=== PATIENT | female | born 1990 | race Caucasian/White ===

== ENCOUNTER 2021-10-21 01:22 | Inpatient (IN) | payer MEDICAID ==
[2021-10-21] VITALS (8 sets, daily range): BP systolic 151–194; BP diastolic 75–106
[~2021-10-21] VITALS: Ht 167.6 cm; Wt 122.5 kg
[2021-10-21] MEDS ORDERED: IPRATRPIUM/ALBUTEROL 0.5/2.5MG 3 ML NEBU. ONE (01:37)
[2021-10-21] MEDS ORDERED: ALBUTEROL SULFATE 2.5 MG/3 ML NEBU. ONE (01:45)
[2021-10-21 01:58] LABS: BASO # 0.1 x10^3/uL (0.0-0.2); BASO % 1 % (0-3); EOS # 0.5 x10^3/uL (0.0-0.7); EOS % 3 % (0-3); HEMATOCRIT 43.8 % (36.0-47.0); HEMOGLOBIN 14.5 g/dL (12.0-15.5); LYMPH # 2.8 x10^3/uL (1.0-4.8); LYMPH % 17 % (24-48); MEAN CORPUSCULAR HEMOGLOBIN 28 pg (25-35); MEAN CORPUSCULAR HGB CONC 33 g/dL (31-37); MEAN CORPUSCULAR VOLUME 86 fL (79-100); MONO # 0.9 x10^3/uL (0.0-1.1); MONO % 6 % (0-9); NEUT # 11.9 x10^3/uL (1.8-7.7); NEUT % 73 % (31-73); PLATELET COUNT 350 x10^3/uL (140-400); RED BLOOD COUNT 5.12 x10^6/uL (3.50-5.40); RED CELL DISTRIBUTION WIDTH 13.5 % (11.5-14.5); WHITE BLOOD COUNT 16.3 x10^3/uL (4.0-11.0)
[2021-10-21 02:10] LABS: CALCIUM 9.3 mg/dL (8.5-10.1); GFR 65.1; POTASSIUM 3.5 mmol/L (3.5-5.1)
[2021-10-21 02:14] LABS: PROTHROMBIN TIME PATIENT 14.1 SEC (11.7-14.0)
[2021-10-21 02:15] LABS: BASE EXCESS ABG 1 mmol/L (-3-3); HCO3 ABG 24 mmol/L (21-28); PCO2 ABG 33 mmHg (35-46); PO2 ABG 69 mmHg (85-108); SAT O2 ABG 94 % (92-99)
[2021-10-21 02:16] LABS: ALBUMIN 4.3 g/dL (3.4-5.0); ALBUMIN/GLOBULIN RATIO 0.9 (1.0-1.7); TOTAL BILIRUBIN 0.7 mg/dL (0.2-1.0); TOTAL PROTEIN 8.9 g/dL (6.4-8.2)
--- NOTE | 2021-10-21 02:16 | RAD ---
XR CHEST 1V 10/21/2021 1:53 AM INDICATION: Shortness of air COMPARISON: None available TECHNIQUE: Portable frontal view of the chest is provided. FINDINGS: The cardiomediastinal silhouette is within normal limits. Lungs are clear. There are no significant pleural effusions. There is no pulmonary vascular congestion. No pneumothora x. No suspicious osseous abnormality. IMPRESSION: There is no acute cardiopulmonary process. Electronically signed by: Ally Youngblood MD (10/21/2021 2:13 AM) [facility]
[2021-10-21 02:17] LABS: PREG TEST PT QUAL NEGATIVE (NEG)
[2021-10-21 02:18] LABS: D-DIMER 0.42 ug/mlFEU (0.00-0.50)
[2021-10-21 02:30] LABS: FIO2 ABG 2L NC
[2021-10-21] MEDS ORDERED: IPRATRPIUM/ALBUTEROL 0.5/2.5MG 3 ML NEBU. NEB ONE (02:30)
[2021-10-21] MEDS ORDERED: methylPREDNISolone SOD SUCC PF 125 MG/2 ML VIAL. IV ONE (02:30)
[2021-10-21] MEDS ORDERED: ALBUTEROL SULFATE 2.5 MG/3 ML NEBU. NEB ONE ×2 (02:30→04:00)
[2021-10-21] MEDS ORDERED: MAGNESIUM SULFATE 2GM 50 ML IV ONE (02:30)
[2021-10-21] MEDS ORDERED: ACETAMINOPHEN 500 MG TABLET PO ONE (05:00)
[2021-10-21] MEDS ORDERED: LEVO500T9 PO (05:34)
[2021-10-21] MEDS ORDERED: PRED20TA PO (05:34)
--- NOTE | 2021-10-21 05:52 | NUR ---
Pt arrived to unit per cart, pt ambulated to restroom and to bed with standby assist. Pt monitoring manager applied vs obtained opt blood pressure elevated. pt denied pain at this time but c/o headache will medicated pt and place call to Primary for further admission orders. Will resume care and continue to monitor pt.Call light in reach.
--- NOTE | 2021-10-21 06:21 | PHYS DOC ---
Past Medical History Past Surgical History: No Surgical History Smoking Status: Former Smoker Alcohol Use: None Adult General Chief Complaint Chief Complaint: SHORTNESS OF BREATH HPI HPI The patient is a 31-year-old female who is otherwise healthy. She smoked cigarettes for about 3 years but quit a few months ago. She has a family history of asthma but no personal history of asthma. She had COVID-19 about a month ago and recovered. Ms. Seay presents for evaluation of difficulty breathing. Over the past couple of weeks she has had a dry cough and shortness of breath. She visited her primary care doctor who noticed that she was wheezing and prescribed a nebulizer machine and oral steroids. She has been taking these. Yesterday she visited her primary care doctor again who noted that symptoms did not seem to have improved. He added on oral Levaquin as empiric coverage for bacterial processes. Patient continued to feel worse and then elected emergency department evaluation. Upon initial evaluation here in the emergency department patient is alert and pleasantly and appropriately interactive and in no acute distress, but audibly wheezing and working mildly to breathe. She denies associated fevers, nausea or vomiting, sore throat, chest pain of any kind, abdominal pain of any kind, flank pain, midline back pain, dysuria, hematuria, polyuria or oliguria, changes in bowel habits, pain or swelling to arms or legs. Vital signs are notable for elevated blood pressure, tachypnea and oxygen saturation in the high 80s on room air. Oxygen saturation is appropriate on 2 L per NC. Review of Systems Review of Systems A 12 point review of systems was completed and was negative except where noted in HPI above. Current Medications Current Medications Current Medications Medications (Trade) Dose Ordered Sig/Carmenza Start Time Stop Time Status Last Admin Dose Admin Albuterol Sulfate (Ventolin Neb Soln) 2.5 mg 1X ONCE 10/21/21 02:30 10/21/21 02:31 DC 10/21/21 02:24 2.5 MG Albuterol/ Ipratropium (Duoneb) 3 ml 1X ONCE 10/21/21 02:30 10/21/21 02:31 DC 10/21/21 02:24 3 ML Magnesium Sulfate 50 ml @ 25 mls/hr 1X ONCE 10/21/21 02:30 10/21/21 04:29 DC 10/21/21 02:46 25 MLS/HR Methylprednisolone Sodium Succinate (SOLU-Medrol 125MG VIAL) 125 mg 1X ONCE 10/21/21 02:30 10/21/21 02:31 DC 10/21/21 02:46 125 MG Allergies Allergies Allergies Coded Allergies Type Severity Reaction Last Updated Verified Penicillins Allergy Severe AIRWAY SWELLING 10/21/21 Yes Physical Exam Physical Exam 31-year-old female appearing nontoxic and in no acute distress. Head is normocephalic and atraumatic. Neck is supple and nontender. Oropharynx is moist. Lungs with modestly diminished breath sounds and wheezes noted to all aguilar without crackles or other adventitious sounds heard. Mild tachypnea. There is a normal S1 and S2 without rubs or gallops and capillary refill is appropriate, less than 2 seconds globally. Abdomen is soft, nontender and nondistended. Skin is warm and dry without cyanosis, clubbing or edema. Psychiatrically, the patient demonstrates appropriate mood and affect and is alert. Evaluation of the extremities reveals BUEs and BLEs neurovascularly intact distally with strength 5 out of 5, sensation intact light touch in all nerve distributions, radial, DP and PT pulses 2+ and equal bilaterally, capillary refill less than 2 seconds, hands and feet warm and well-perfused. No dependent peripheral edema distally. No calf tenderness or swelling bilaterally. Vladimir's test is negative bilaterally. Current Patient Data Vital Signs Vital Signs Date Time Temp Pulse Resp B/P (MAP) Pulse Ox O2 Delivery O2 Flow Rate FiO2 10/21/21 03:00 94 20 181/89 (119) 94 Nasal Cannula 2.0 10/21/21 01:22 98.0 98.0 Lab Values Laboratory Tests Test 10/21/21 01:38 10/21/21 02:04 White Blood Count 16.3 x10^3/uL (4.0-11.0) H Red Blood Count 5.12 x10^6/uL (3.50-5.40) Hemoglobin 14.5 g/dL (12.0-15.5) Hematocrit 43.8 % (36.0-47.0) Mean Corpuscular Volume 86 fL (79-100) Mean Corpuscular Hemoglobin 28 pg (25-35) Mean Corpuscular Hemoglobin Concent 33 g/dL (31-37) Red Cell Distribution Width 13.5 % (11.5-14.5) Platelet Count 350 x10^3/uL (140-400) Neutrophils (%) (Auto) 73 % (31-73) Lymphocytes (%) (Auto) 17 % (24-48) L Monocytes (%) (Auto) 6 % (0-9) Eosinophils (%) (Auto) 3 % (0-3) Basophils (%) (Auto) 1 % (0-3) Neutrophils # (Auto) 11.9 x10^3/uL (1.8-7.7) H Lymphocytes # (Auto) 2.8 x10^3/uL (1.0-4.8) Monocytes # (Auto) 0.9 x10^3/uL (0.0-1.1) Eosinophils # (Auto) 0.5 x10^3/uL (0.0-0.7) Basophils # (Auto) 0.1 x10^3/uL (0.0-0.2) Prothrombin Time 14.1 SEC (11.7-14.0) H Prothrombin Time INR 1.1 (0.8-1.1) Activated Partial Thromboplast Time 25 SEC (24-38) D-Dimer (Kate) 0.42 ug/mlFEU (0.00-0.50) Sodium Level 137 mmol/L (136-145) Potassium Level 3.5 mmol/L (3.5-5.1) Chloride Level 100 mmol/L (98-107) Carbon Dioxide Level 29 mmol/L (21-32) Anion Gap 8 (6-14) Blood Urea Nitrogen 11 mg/dL (7-20) Creatinine 1.0 mg/dL (0.6-1.0) Estimated GFR (Cockcroft-Gault) 65.1 BUN/Creatinine Ratio 11 (6-20) Glucose Level 132 mg/dL (70-99) H Lactic Acid Level 2.0 mmol/L (0.4-2.0) Calcium Level 9.3 mg/dL (8.5-10.1) Total Bilirubin 0.7 mg/dL (0.2-1.0) Aspartate Amino Transferase (AST) 23 U/L (15-37) Alanine Aminotransferase (ALT) 41 U/L (14-59) Alkaline Phosphatase 72 U/L (46-116) Troponin I High Sensitivity 10 ng/L (4-50) LS-Tag-W-Type Natriuretic Peptide 139 pg/mL (0-124) H Total Protein 8.9 g/dL (6.4-8.2) H Albumin 4.3 g/dL (3.4-5.0) Albumin/Globulin Ratio 0.9 (1.0-1.7) L Procalcitonin 0.39 ng/mL (0.00-0.10) H Serum Test, Qualitative Negative (NEG) O2 Saturation 94 % (92-99) Arterial Blood pH 7.47 (7.35-7.45) H Arterial Blood pCO2 at Patient Temp 33 mmHg (35-46) L Arterial Blood pO2 at Patient Temp 69 mmHg (85-108) L Arterial Blood HCO3 24 mmol/L (21-28) Arterial Blood Base Excess 1 mmol/L (-3-3) FiO2 2l nc Laboratory Tests 10/21/21 01:38 Laboratory Tests 10/21/21 01:38 EKG EKG Sinus rhythm, rate 107, no acute ST elevation or depression, EP interpretation. Nonischemic tracing. Radiology/Procedures Radiology/Procedures XR CHEST 1V 10/21/2021 1:53 AM INDICATION: Shortness of air COMPARISON: None available TECHNIQUE: Portable frontal view of the chest is provided. FINDINGS: The cardiomediastinal silhouette is within normal limits. Lungs are clear. There are no significant pleural effusions. There is no pulmonary vascular congestion. No pneumothorax. No suspicious osseous abnormality. IMPRESSION: There is no acute cardiopulmonary process. Electronically signed by: Analia Sow MD (10/21/2021 2:13 AM) [facility] DICTATED and SIGNED BY: ANALIA SOW MD DATE: 10/21/21 [id number] [] Course & Med Decision Making Course & Med Decision Making Large work-up is as noted, generally without significant evidence of acute process aside from hypoxemia on ABG. Patient is breathing much more comfortably after breathing treatments and steroids and IV magnesium as per flowsheet. Still requiring supplemental oxygen. Given this and failure of outpatient treatment for her presenting illness, will bring in for further care. Graciously accepted for admission by hospitalist Dr. Coleman. Will place a c onsult to pulmonary medicine. Dragon Disclaimer Dragon Disclaimer This electronic medical record was generated, in whole or in part, using a voice recognition dictation system. Departure Departure Impression: Primary Impression: Bronchospasm Additional Impression: Acute hypoxemic respiratory failure Disposition: ADMITTED INPATIENT Condition: STABLE Referrals: UNKNOWN PCP NAME (PCP) Problem Qualifiers AARON MALONEY MD Oct 21, 2021 06:20
[2021-10-21] MEDS ORDERED: ONDANSETRON PF 4 MG/2 ML VIAL. IVP PRN (06:30)
--- NOTE | 2021-10-21 07:17 | EKG ---
[facility] [address] [place] [address] Test Date: 2021-10-21 Test Time: 02:16:22 Pat Name: DOLORES WILLIAMSON Department: Room: [facility] Gender: F Milling Planer Operator: : 1990 Requested By: AARON MALONEY Order Number: [id number] Reading MD: Ez Hodge Measurements Intervals [place] Rate: 107 P: 110 GA: 150 QRS: 66 QRSD: 92 T: 31 QT: 376 QTc: 508 Interpretive Statements SINUS TACHYCARDIA Electronically Signed On 10-22-2021 16:37:55 TAILER IN by Ez Hodge
[2021-10-21] MEDS ORDERED: IPRATRPIUM/ALBUTEROL 0.5/2.5MG 3 ML NEBU. NEB SCH (08:00)
[2021-10-21] MEDS: ACETAMINOPHEN 325 MG TABLET. PO PRN ×2 (08:17→18:00)
[2021-10-21] MEDS ORDERED: POTASSIUM CHLORIDE 20 MEQ TABLET.ER. PO ONE (08:30)
--- NOTE | 2021-10-21 08:45 | PDOC1 ---
History and Physical Date of Admission Date of Admission DATE: 10/21/21 TIME: 08:43 Source Source: Chart review, Patient History of Present Illness History of Present Illness Roseann Seay is a 31-year-old female who was previoulsy healthy, recent COVID infection, 09/29, and was on doxy and steroid treatment. she had improved for some time, now has worsened and has had marked trouble breathing she reports she hasnt slept in days because she feels ill and she thinks if she falls asleep she wont wake up. this am after treatmetns and steroids, she reports feeling better and breathing better than she has in days. Over the past couple of weeks she has had a dry cough and shortness of breath. She saw urgent care a short while ago and they noted wheezing and prescribed a nebulizer machine and oral steroids. Yesterday she visited urgent care at [facility] and stated on oral Levaquin as empiric coverage for bacterial processes. noted overnight, elevated blood pressure started on low dose norvasc, tachypnea and oxygen saturation in the high 80s on room air. Oxygen saturation is 93% on 2 L per NC. 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 Past Medical History Cardiovascular: No pertinent hx Pulmonary: No pertinent hx GI: No pertinent hx Heme/Onc: No pertinent hx Hepatobiliary: No pertinent hx Rheumatologic: No pertinent hx Infectious disease: No pertinent hx ENT: No pertinent hx Renal/: No pertinent hx Endocrine: No pertinent hx Dermatology: No pertinent hx Grav: 2 Para: 2 Past Surgical History Past Surgical History: No pertinent history Social History Smoke: Quit ALCOHOL: none Drugs: None Current Medications Current Medications Current Medications Albuterol/ Ipratropium (Duoneb) 3 ml STK-MED ONCE .ROUTE ; Start 10/21/21 at 01:37; Stop 10/21/21 at 01:37; Status DC Albuterol Sulfate (Ventolin Neb Soln) 2.5 mg STK-MED ONCE .ROUTE ; Start 10/21/21 at 01:45; Stop 10/21/21 at 01:46; Status DC Albuterol/ Ipratropium (Duoneb) 3 ml 1X ONCE NEB Last administered on 10/21/21at 02:24; Start 10/21/21 at 02:30; Stop 10/21/21 at 02:31; Status DC Albuterol Sulfate (Ventolin Neb Soln) 2.5 mg 1X ONCE NEB Last administered on 10/21/21at 02:24; Start 10/21/21 at 02:30; Stop 10/21/21 at 02:31; Status DC Methylprednisolone Sodium Succinate (SOLU-Medrol 125MG VIAL) 125 mg 1X ONCE IV Last administered on 10/21/21at 02:46; Start 10/21/21 at 02:30; Stop 10/21/21 at 02:31; Status DC Magnesium Sulfate 50 ml @ 25 mls/hr 1X ONCE IV Last administered on 10/21/21at 02:46; Start 10/21/21 at 02:30; Stop 10/21/21 at 04:29; Status DC Albuterol Sulfate (Ventolin Neb Soln) 2.5 mg 1X ONCE NEB Last administered on 10/21/21at 03:47; Start 10/21/21 at 04:00; Stop 10/21/21 at 04:01; Status DC Acetaminophen (Tylenol) 1,000 mg 1X ONCE PO Last administered on 10/21/21at 05:29; Start 10/21/21 at 05:00; Stop 10/21/21 at 05:01; Status DC Ondansetron HCl (Zofran) 4 mg PRN Q8HRS PRN IVP NAUSEA/VOMITING 1ST CHOICE; Start 10/21/21 at 06:30; Stop 10/22/21 at 06:29 Acetaminophen (Tylenol) 650 mg PRN Q4HRS PRN PO FEVER > 100.3'F Last administered on 10/21/21at 08:17; Start 10/21/21 at 06:30; Stop 10/22/21 at 06:29 Albuterol/ Ipratropium (Duoneb) 3 ml RTQID NEB Last administered on 10/21/21at 07:32; Start 10/21/21 at 08:00 Methylprednisolone Sodium Succinate (SOLU-Medrol 40MG VIAL) 40 mg Q8HRS IV ; Start 10/21/21 at 14:00 Amlodipine Besylate (Norvasc) 2.5 mg DAILY PO Last administered on 10/21/21at 08:17; Start 10/21/21 at 09:00 Levofloxacin (Levaquin) 500 mg DAILY06 PO Last administered on 10/21/21at 07:00; Start 10/21/21 at 07:00 Albuterol/ Ipratropium (Duoneb) 3 ml Q4HRS W/A NEB ; Start 10/21/21 at 10:00 Active Scripts Active Reported Levofloxacin 500 Mg Tablet 1 Tab PO DAILY Prednisone 20 Mg Tablet 2 Tab PO DAILY Allergies Allergies: Coded Allergies: Penicillins (Verified Allergy, Severe, AIRWAY SWELLING, 10/21/21) ROS General: YES: Fatigue, Malaise, Appetite PSYCHOLOGICAL ROS: YES: Anxiety, Sleep disturbances; No: Behavioral Disorder, Concentration difficultie, Decreased libido, Depression, Disorientation, Hallucinations, Hostility, Irritablity, Memory difficulties, Mood Swings, Obsessive thoughts, Suicidal ideation, Other Eyes: No Blurry vision, No Decreased vision, No Double vision, No Dry eyes, No Excessive tearing, No Eye Pain, No Itchy Eyes, No Loss of vision, No Photophobia, No Scotomata, No Uses contacts, No Uses glasses, No Other HEENT: No: Heacaches, Visual Changes, Hearing change, Nasal congestion, Nasal discharge, Oral lesions, Sinus pain, Sore Throat, Epistaxis, Sneezing, Snoring, Tinnitus, Vertigo, Vocal changes, Other Respiratory: YES: Cough, Shortness of breath, SOB with excertion, Tachypnea, Wheezing Cardiovascular: yes Other; No Chest Pain, No Palpitations, No Orthopnea, No Paroxysmal Noc. Dyspnea, No Edema, No Lt Headedness Gastrointestinal: Yes Nausea; No Vomiting, No Abdominal Pain, No Diarrhea, No Constipation, No Melena, No Hematochezia, No Other Genitourinary: No Dysuria, No Frequency, No Incontinence, No Hematuria, No Retention, No Discharge, No Urgency, No Pain, No Flank Pain, No Other, No , No , No , No , No , No , No Musculoskeletal: No Gait Disturbance, No Joint Pain, No Joint Stiffness, No Joint Swelling, No Muscle Pain, No Muscular Weakness, No Pain In:, No Swelling In:, No Other Neurological: No Behavorial Changes, No Bowel/Bladder ControlChng, No Confusion, No Dizziness, No Gait Disturbance, No Headaches, No Impaired Coord/balance, No Memory Loss, No Numbness/Tingling, No Seizures, No Speech Problems, No Tremors, No Visual Changes, No Weakness, No Other Skin: Yes Dry Skin; No Eczema, No Hair Changes, No Lumps, No Mole Changes, No Mottling, No Nail Changes, No Pruritus, No Rash, No Skin Lesion Changes, No Other, No Acne Physical Exam General: Alert, Oriented X3, mild distress HEENT: Atraumatic Lungs: Clear to auscultation, Other (lower volume, end wheeze right worse than left, no rales or crackles or rhonchi, did not cough when taking deep inspiration ) Heart: S1S2, RRR Abdomen: Normal bowel sounds (obese), Soft, No tenderness Extremities: No clubbing, No edema Skin: No rashes, No breakdown Neuro: Normal speech, Normal tone, Sensation intact Psych/Mental Status: Mental status NL, Mood NL Vitals Vitals Vital Signs Date Time Temp Pulse Resp B/P (MAP) Pulse Ox O2 Delivery O2 Flow Rate FiO2 10/21/21 08:17 85 187/99 10/21/21 07:44 98 Nasal Cannula 2.0 10/21/21 07:00 98.2 19 98.2 Labs Labs Laboratory Tests Test 10/21/21 01:38 10/21/21 02:04 White Blood Count 16.3 x10^3/uL (4.0-11.0) Red Blood Count 5.12 x10^6/uL (3.50-5.40) Hemoglobin 14.5 g/dL (12.0-15.5) Hematocrit 43.8 % (36.0-47.0) Mean Corpuscular Volume 86 fL (79-100) Mean Corpuscular Hemoglobin 28 pg (25-35) Mean Corpuscular Hemoglobin Concent 33 g/dL (31-37) Red Cell Distribution Width 13.5 % (11.5-14.5) Platelet Count 350 x10^3/uL (140-400) Neutrophils (%) (Auto) 73 % (31-73) Lymphocytes (%) (Auto) 17 % (24-48) Monocytes (%) (Auto) 6 % (0-9) Eosinophils (%) (Auto) 3 % (0-3) Basophils (%) (Auto) 1 % (0-3) Neutrophils # (Auto) 11.9 x10^3/uL (1.8-7.7) Lymphocytes # (Auto) 2.8 x10^3/uL (1.0-4.8) Monocytes # (Auto) 0.9 x10^3/uL (0.0-1.1) Eosinophils # (Auto) 0.5 x10^3/uL (0.0-0.7) Basophils # (Auto) 0.1 x10^3/uL (0.0-0.2) Prothrombin Time 14.1 SEC (11.7-14.0) Prothromb Time International Ratio 1.1 (0.8-1.1) Activated Partial Thromboplast Time 25 SEC (24-38) D-Dimer (Kate) 0.42 ug/mlFEU (0.00-0.50) Sodium Level 137 mmol/L (136-145) Potassium Level 3.5 mmol/L (3.5-5.1) Chloride Level 100 mmol/L (98-107) Carbon Dioxide Level 29 mmol/L (21-32) Anion Gap 8 (6-14) Blood Urea Nitrogen 11 mg/dL (7-20) Creatinine 1.0 mg/dL (0.6-1.0) Estimated GFR (Cockcroft-Gault) 65.1 BUN/Creatinine Ratio 11 (6-20) Glucose Level 132 mg/dL (70-99) Lactic Acid Level 2.0 mmol/L (0.4-2.0) Calcium Level 9.3 mg/dL (8.5-10.1) Total Bilirubin 0.7 mg/dL (0.2-1.0) Aspartate Amino Transf (AST/SGOT) 23 U/L (15-37) Alanine Aminotransferase (ALT/SGPT) 41 U/L (14-59) Alkaline Phosphatase 72 U/L (46-116) Troponin I High Sensitivity 10 ng/L (4-50) QM-Ifv-K-Type Natriuretic Peptide 139 pg/mL (0-124) Total Protein 8.9 g/dL (6.4-8.2) Albumin 4.3 g/dL (3.4-5.0) Albumin/Globulin Ratio 0.9 (1.0-1.7) Procalcitonin 0.39 ng/mL (0.00-0.10) Serum Test, Qualitative Negative (NEG) O2 Saturation 94 % (92-99) Arterial Blood pH 7.47 (7.35-7.45) Arterial Blood pCO2 at Patient Temp 33 mmHg (35-46) Arterial Blood pO2 at Patient Temp 69 mmHg (85-108) Arterial Blood HCO3 24 mmol/L (21-28) Arterial Blood Base Excess 1 mmol/L (-3-3) FiO2 2l nc Laboratory Tests Test 10/21/21 01:38 10/21/21 02:04 White Blood Count 16.3 x10^3/uL (4.0-11.0) Red Blood Count 5.12 x10^6/uL (3.50-5.40) Hemoglobin 14.5 g/dL (12.0-15.5) Hematocrit 43.8 % (36.0-47.0) Mean Corpuscular Volume 86 fL (79-100) Mean Corpuscular Hemoglobin 28 pg (25-35) Mean Corpuscular Hemoglobin Concent 33 g/dL (31-37) Red Cell Distribution Width 13.5 % (11.5-14.5) Platelet Count 350 x10^3/uL (140-400) Neutrophils (%) (Auto) 73 % (31-73) Lymphocytes (%) (Auto) 17 % (24-48) Monocytes (%) (Auto) 6 % (0-9) Eosinophils (%) (Auto) 3 % (0-3) Basophils (%) (Auto) 1 % (0-3) Neutrophils # (Auto) 11.9 x10^3/uL (1.8-7.7) Lymphocytes # (Auto) 2.8 x10^3/uL (1.0-4.8) Monocytes # (Auto) 0.9 x10^3/uL (0.0-1.1) Eosinophils # (Auto) 0.5 x10^3/uL (0.0-0.7) Basophils # (Auto) 0.1 x10^3/uL (0.0-0.2) Prothrombin Time 14.1 SEC (11.7-14.0) Prothromb Time International Ratio 1.1 (0.8-1.1) Activated Partial Thromboplast Time 25 SEC (24-38) D-Dimer (Kate) 0.42 ug/mlFEU (0.00-0.50) Sodium Level 137 mmol/L (136-145) Potassium Level 3.5 mmol/L (3.5-5.1) Chloride Level 100 mmol/L (98-107) Carbon Dioxide Level 29 mmol/L (21-32) Anion Gap 8 (6-14) Blood Urea Nitrogen 11 mg/dL (7-20) Creatinine 1.0 mg/dL (0.6-1.0) Estimated GFR (Cockcroft-Gault) 65.1 BUN/Creatinine Ratio 11 (6-20) Glucose Level 132 mg/dL (70-99) Lactic Acid Level 2.0 mmol/L (0.4-2.0) Calcium Level 9.3 mg/dL (8.5-10.1) Total Bilirubin 0.7 mg/dL (0.2-1.0) Aspartate Amino Transf (AST/SGOT) 23 U/L (15-37) Alanine Aminotransferase (ALT/SGPT) 41 U/L (14-59) Alkaline Phosphatase 72 U/L (46-116) Troponin I High Sensitivity 10 ng/L (4-50) XF-Yjy-W-Type Natriuretic Peptide 139 pg/mL (0-124) Total Protein 8.9 g/dL (6.4-8.2) Albumin 4.3 g/dL (3.4-5.0) Albumin/Globulin Ratio 0.9 (1.0-1.7) Procalcitonin 0.39 ng/mL (0.00-0.10) Serum Test, Qualitative Negative (NEG) O2 Saturation 94 % (92-99) Arterial Blood pH 7.47 (7.35-7.45) Arterial Blood pCO2 at Patient Temp 33 mmHg (35-46) Arterial Blood pO2 at Patient Temp 69 mmHg (85-108) Arterial Blood HCO3 24 mmol/L (21-28) Arterial Blood Base Excess 1 mmol/L (-3-3) FiO2 2l nc VTE Prophylaxis Ordered VTE Prophylaxis Devices: No VTE Pharmacological Prophylaxi: Yes Assessment/Plan Assessment/Plan acute hypoxia respiratory failure, Asthma and acute bronchitis recent COVID weak, lethargy, muscle aches, she looks like FLU, will swab for flu A + B Proph lovenox only, a PE is possible,but she feels much ebtter with treating bronchiolar symptoms so far, wheeze is seb,r anxiety, situational obesity, BMI 44 PUlm consult Justifications for Admission Other Justification JENNIFER ESTEBAN MD Oct 21, 2021 08:45
[2021-10-21] MEDS: ENOXAPARIN 40 MG/0.4 ML SYRINGE. SQ SCH ×2 (08:54→21:19)
[2021-10-21 09:02] LABS: BILIRUBIN,URINE NEGATIVE (NEG); CLARITY,URINE CLEAR; COLOR,URINE YELLOW; NITRITE,URINE NEGATIVE (NEG); PH,URINE 5.5 (<5.0-8.0); PROTEIN,URINE NEGATIVE (NEG-TRACE); UROBILINOGEN,URINE 0.2 mg/dL (0.2 mg/dL)
[2021-10-21 09:21] LABS: BACTERIA,URINE 0 /HPF (0-FEW); WBC,URINE OCC /HPF (0-4)
[2021-10-21 09:23] LABS: INFLUENZA A PATIENT NEGATIVE (NEGATIVE); INFLUENZA B PATIENT NEGATIVE (NEGATIVE)
--- NOTE | 2021-10-21 11:07 | PDOC ---
PULMONARY PROGRESS NOTES DATE: 10/21/21 TIME: 11:07 Vitals Vital Signs Date Time Temp Pulse Resp B/P (MAP) Pulse Ox O2 Delivery O2 Flow Rate FiO2 10/21/21 08:17 85 187/99 10/21/21 08:00 Nasal Cannula 2.0 10/21/21 07:44 98 10/21/21 07:00 98.2 19 98.2 Labs Laboratory Tests Test 10/21/21 01:38 10/21/21 02:04 10/21/21 08:53 10/21/21 08:59 White Blood Count 16.3 x10^3/uL (4.0-11.0) Red Blood Count 5.12 x10^6/uL (3.50-5.40) Hemoglobin 14.5 g/dL (12.0-15.5) Hematocrit 43.8 % (36.0-47.0) Mean Corpuscular Volume 86 fL (79-100) Mean Corpuscular Hemoglobin 28 pg (25-35) Mean Corpuscular Hemoglobin Concent 33 g/dL (31-37) Red Cell Distribution Width 13.5 % (11.5-14.5) Platelet Count 350 x10^3/uL (140-400) Neutrophils (%) (Auto) 73 % (31-73) Lymphocytes (%) (Auto) 17 % (24-48) Monocytes (%) (Auto) 6 % (0-9) Eosinophils (%) (Auto) 3 % (0-3) Basophils (%) (Auto) 1 % (0-3) Neutrophils # (Auto) 11.9 x10^3/uL (1.8-7.7) Lymphocytes # (Auto) 2.8 x10^3/uL (1.0-4.8) Monocytes # (Auto) 0.9 x10^3/uL (0.0-1.1) Eosinophils # (Auto) 0.5 x10^3/uL (0.0-0.7) Basophils # (Auto) 0.1 x10^3/uL (0.0-0.2) Prothrombin Time 14.1 SEC (11.7-14.0) Prothromb Time International Ratio 1.1 (0.8-1.1) Activated Partial Thromboplast Time 25 SEC (24-38) D-Dimer (Kate) 0.42 ug/mlFEU (0.00-0.50) Sodium Level 137 mmol/L (136-145) Potassium Level 3.5 mmol/L (3.5-5.1) Chloride Level 100 mmol/L (98-107) Carbon Dioxide Level 29 mmol/L (21-32) Anion Gap 8 (6-14) Blood Urea Nitrogen 11 mg/dL (7-20) Creatinine 1.0 mg/dL (0.6-1.0) Estimated GFR (Cockcroft-Gault) 65.1 BUN/Creatinine Ratio 11 (6-20) Glucose Level 132 mg/dL (70-99) Lactic Acid Level 2.0 mmol/L (0.4-2.0) Calcium Level 9.3 mg/dL (8.5-10.1) Total Bilirubin 0.7 mg/dL (0.2-1.0) Aspartate Amino Transf (AST/SGOT) 23 U/L (15-37) Alanine Aminotransferase (ALT/SGPT) 41 U/L (14-59) Alkaline Phosphatase 72 U/L (46-116) Troponin I High Sensitivity 10 ng/L (4-50) GW-Vzl-A-Type Natriuretic Peptide 139 pg/mL (0-124) Total Protein 8.9 g/dL (6.4-8.2) Albumin 4.3 g/dL (3.4-5.0) Albumin/Globulin Ratio 0.9 (1.0-1.7) Procalcitonin 0.39 ng/mL (0.00-0.10) Serum Test, Qualitative Negative (NEG) O2 Saturation 94 % (92-99) Arterial Blood pH 7.47 (7.35-7.45) Arterial Blood pCO2 at Patient Temp 33 mmHg (35-46) Arterial Blood pO2 at Patient Temp 69 mmHg (85-108) Arterial Blood HCO3 24 mmol/L (21-28) Arterial Blood Base Excess 1 mmol/L (-3-3) FiO2 2l nc Urine Collection Type Unknown Urine Color Yellow Urine Clarity Clear Urine pH 5.5 (<5.0-8.0) Urine Specific [place] 1.010 (1.000-1.030) Urine Protein Negative mg/dL (NEG-TRACE) Urine Glucose (UA) Negative mg/dL (NEG) Urine Ketones (Stick) Negative mg/dL (NEG) Urine Blood Moderate (NEG) Urine Nitrite Negative (NEG) Urine Bilirubin Negative (NEG) Urine Urobilinogen Dipstick 0.2 mg/dL (0.2 mg/dL) Urine Leukocyte Esterase Negative (NEG) Urine RBC 3-5 /HPF (0-2) Urine WBC Occ /HPF (0-4) Urine Squamous Epithelial Cells Many /LPF Urine Bacteria 0 /HPF (0-FEW) Urine Mucus Mod /LPF Influenza Type A Antigen Negative (NEGATIVE) Influenza Type B Antigen Negative (NEGATIVE) Laboratory Tests Test 10/21/21 01:38 10/21/21 02:04 10/21/21 08:53 10/21/21 08:59 White Blood Count 16.3 x10^3/uL (4.0-11.0) Red Blood Count 5.12 x10^6/uL (3.50-5.40) Hemoglobin 14.5 g/dL (12.0-15.5) Hematocrit 43.8 % (36.0-47.0) Mean Corpuscular Volume 86 fL (79-100) Mean Corpuscular Hemoglobin 28 pg (25-35) Mean Corpuscular Hemoglobin Concent 33 g/dL (31-37) Red Cell Distribution Width 13.5 % (11.5-14.5) Platelet Count 350 x10^3/uL (140-400) Neutrophils (%) (Auto) 73 % (31-73) Lymphocytes (%) (Auto) 17 % (24-48) Monocytes (%) (Auto) 6 % (0-9) Eosinophils (%) (Auto) 3 % (0-3) Basophils (%) (Auto) 1 % (0-3) Neutrophils # (Auto) 11.9 x10^3/uL (1.8-7.7) Lymphocytes # (Auto) 2.8 x10^3/uL (1.0-4.8) Monocytes # (Auto) 0.9 x10^3/uL (0.0-1.1) Eosinophils # (Auto) 0.5 x10^3/uL (0.0-0.7) Basophils # (Auto) 0.1 x10^3/uL (0.0-0.2) Prothrombin Time 14.1 SEC (11.7-14.0) Prothromb Time International Ratio 1.1 (0.8-1.1) Activated Partial Thromboplast Time 25 SEC (24-38) D-Dimer (Kate) 0.42 ug/mlFEU (0.00-0.50) Sodium Level 137 mmol/L (136-145) Potassium Level 3.5 mmol/L (3.5-5.1) Chloride Level 100 mmol/L (98-107) Carbon Dioxide Level 29 mmol/L (21-32) Anion Gap 8 (6-14) Blood Urea Nitrogen 11 mg/dL (7-20) Creatinine 1.0 mg/dL (0.6-1.0) Estimated GFR (Cockcroft-Gault) 65.1 BUN/Creatinine Ratio 11 (6-20) Glucose Level 132 mg/dL (70-99) Lactic Acid Level 2.0 mmol/L (0.4-2.0) Calcium Level 9.3 mg/dL (8.5-10.1) Total Bilirubin 0.7 mg/dL (0.2-1.0) Aspartate Amino Transf (AST/SGOT) 23 U/L (15-37) Alanine Aminotransferase (ALT/SGPT) 41 U/L (14-59) Alkaline Phosphatase 72 U/L (46-116) Troponin I High Sensitivity 10 ng/L (4-50) ZY-Zjk-L-Type Natriuretic Peptide 139 pg/mL (0-124) Total Protein 8.9 g/dL (6.4-8.2) Albumin 4.3 g/dL (3.4-5.0) Albumin/Globulin Ratio 0.9 (1.0-1.7) Procalcitonin 0.39 ng/mL (0.00-0.10) Serum Test, Qualitative Negative (NEG) O2 Saturation 94 % (92-99) Arterial Blood pH 7.47 (7.35-7.45) Arterial Blood pCO2 at Patient Temp 33 mmHg (35-46) Arterial Blood pO2 at Patient Temp 69 mmHg (85-108) Arterial Blood HCO3 24 mmol/L (21-28) Arterial Blood Base Excess 1 mmol/L (-3-3) FiO2 2l nc Urine Collection Type Unknown Urine Color Yellow Urine Clarity Clear Urine pH 5.5 (<5.0-8.0) Urine Specific [place] 1.010 (1.000-1.030) Urine Protein Negative mg/dL (NEG-TRACE) Urine Glucose (UA) Negative mg/dL (NEG) Urine Ketones (Stick) Negative mg/dL (NEG) Urine Blood Moderate (NEG) Urine Nitrite Negative (NEG) Urine Bilirubin Negative (NEG) Urine Urobilinogen Dipstick 0.2 mg/dL (0.2 mg/dL) Urine Leukocyte Esterase Negative (NEG) Urine RBC 3-5 /HPF (0-2) Urine WBC Occ /HPF (0-4) Urine Squamous Epithelial Cells Many /LPF Urine Bacteria 0 /HPF (0-FEW) Urine Mucus Mod /LPF Influenza Type A Antigen Negative (NEGATIVE) Influenza Type B Antigen Negative (NEGATIVE) Medications Active Scripts Medications Dose Route/Sig Max Daily Dose Days Date Category Levofloxacin 500 Mg Tablet 1 Tab PO DAILY 10/21/21 Reported Prednisone 20 Mg Tablet 2 Tab PO DAILY 10/21/21 Reported Impression . Full consult dictated We will proceed with ruling out PE Suspect mostly asthma/COPD exacerbation KASHIF SAWANT MD Oct 21, 2021 11:07
[2021-10-21] MEDS ORDERED: methylPREDNISolone SOD SUCC PF 40 MG/ML VIAL. IV SCH ×2 (11:30→14:00)
[2021-10-21] MEDS: IPRATRPIUM/ALBUTEROL 0.5/2.5MG 3 ML NEBU. NEB SCH ×4 (11:48→21:04)
[2021-10-21] MEDS: methylPREDNISolone SOD SUCC PF 40 MG/ML VIAL. IV SCH ×2 (12:21→21:18)
--- NOTE | 2021-10-21 13:30 | NUR ---
SS following for discharge planning. SS reviewed pt chart and discussed with pt RN. Pt is from home and is currently requiring oxygen at two liters nasal canula. COVID19 recovered. Pulmonology consulted. Pt on IV Solu-Medrol and PO Levaquin. SS will continue to follow for discharge planning.
[2021-10-21] MEDS: ALPRAZolam 0.25 MG TABLET PO PRN (15:16)
[2021-10-21] MEDS ORDERED: CONTRAST GIVEN. MC PRN (16:45)
[2021-10-21] MEDS ORDERED: IOHEXOL 350 MG/ML 100 ML VIAL. IV ONE (16:45)
--- NOTE | 2021-10-21 16:54 | RAD ---
Exam Date: 10/21/2021 4:35 PM CTA CHEST Indication: Reason: SOA, POST Covid / Spl. Instructions: omni 350 100ml, RN WILL CALL WHEN READY / H istory: . TECHNIQUE: CT angiogram of the chest was performed following the administration of nonionic intrave nous contrast for evaluation of pulmonary embolus. 3D MIPs were created and reviewed on an [employer] workstation to assist in diagnosis and clinical management. One or more of the following dose red uction techniques were utilized: *Automated exposure control (AEC) *Adjustment of mA and/or kV according to patient size *Use of iterative reconstruction technique *CT scan done according to ALARA, or ALARA/IMAGE GENTLY FINDINGS: There is suboptimal opacification of the pulmonary arteries due to bolus timing. No definite central intravascular filling defects are appreciated. There is no definite evidence for central pulmonary embolus. The aorta is normal in caliber without evidence for dissection. The heart is normal in size without pericardial effusion. The visualized thyroid gland is within normal limits. No lymphadenopathy is seen. There are patchy areas of groundglass attenuation in the lungs bilaterally suspicious for multifocal pneumonia. The central airways are patent. There is no pleural effusion or pneumothorax. Images of the upper abdomen demonstrate calcified granulomas in the liver. Degenerative changes are seen in the spine. IMPRESSION: No definite evidence for central pulmonary embolus, allowing for the limitations of the exam. Patchy groundglass attenuation in the lungs bilaterally suspicious for multifocal pneumonia. Follow- up imaging to resolution is recommended. Electronically signed by: Benigno Younger MD (10/21/2021 4:51 PM) [facility]
[2021-10-21] MEDS: LACTOBACILLUS RHAMNOSUS GG 1 CAPSULE. PO SCH (21:18)
[2021-10-22 03:00] VITALS: BP 146/76
[2021-10-22] MEDS: ALBUTEROL SULFATE 2.5 MG/3 ML NEBU. NEB PRN ×2 (03:53→12:45)
[2021-10-22] MEDS: ALPRAZolam 0.25 MG TABLET PO PRN (04:02)
[2021-10-22 04:48] LABS: BASO % 0 % (0-3); EOS % 0 % (0-3); HEMATOCRIT 43.8 % (36.0-47.0); HEMOGLOBIN 14.5 g/dL (12.0-15.5); LYMPH # 1.7 x10^3/uL (1.0-4.8); LYMPH % 15 % (24-48); MEAN CORPUSCULAR HEMOGLOBIN 29 pg (25-35); MEAN CORPUSCULAR HGB CONC 33 g/dL (31-37); MEAN CORPUSCULAR VOLUME 87 fL (79-100); MONO # 0.5 x10^3/uL (0.0-1.1); MONO % 5 % (0-9); NEUT # 9.4 x10^3/uL (1.8-7.7); NEUT % 81 % (31-73); PLATELET COUNT 346 x10^3/uL (140-400); RED BLOOD COUNT 5.02 x10^6/uL (3.50-5.40); RED CELL DISTRIBUTION WIDTH 14.1 % (11.5-14.5); WHITE BLOOD COUNT 11.7 x10^3/uL (4.0-11.0)
[2021-10-22] MEDS: ACETAMINOPHEN 325 MG TABLET. PO PRN (04:55)
[2021-10-22 05:09] LABS: CALCIUM 9.6 mg/dL (8.5-10.1); CREATININE 0.9 mg/dL (0.6-1.0); GFR 73.5; POTASSIUM 4.4 mmol/L (3.5-5.1)
[2021-10-22] MEDS: methylPREDNISolone SOD SUCC PF 40 MG/ML VIAL. IV SCH ×3 (05:43→21:05)
--- NOTE | 2021-10-22 06:37 | CONS ---
DATE OF CONSULTATION: 10/21/2021 ATTENDING PHYSICIAN: Filomena Coleman MD REASON FOR CONSULTATION: The patient is seen in pulmonary consultation at the request of Dr. Coleman for shortness of breath. HISTORY OF PRESENT ILLNESS: The patient is a 31-year-old that we saw had COVID sometime ago on September 02. Over the last several weeks, she has had 4 visits to [facility]. I reviewed her discharge papers, she was treated for bronchitis. She has had several rounds of prednisone, albuterol p.r.n. and some Tessalon Perles. She was seen there yesterday day prior to admission, she presented with increasing shortness of breath, unable to improve. She was admitted. I was asked to see her in consultation. The patient does smoke. She denies any drug use. She had a chest x-ray, which I personally reviewed, no evidence of cardiopulmonary process. Yesterday, she states that she could not some chest discomfort. She was wheezing. There is no prior history of asthma. PAST MEDICAL HISTORY: Tobacco dependent, no prior history of COPD or asthma. PAST SURGICAL HISTORY: None. SOCIAL HISTORY: She quit tobacco recently. Denies any illicit drugs. REVIEW OF SYSTEMS: As indicated above, otherwise a 10-point system was reviewed and negative. ALLERGIES: PENICILLIN. CURRENT MEDICATIONS: List was reviewed. PHYSICAL EXAMINATION: VITAL SIGNS: Stable. O2 saturation was greater than 92%. NECK: Jugular venous distention was not elevated. No lymphadenopathy. CHEST: Full expansion. LUNGS: Prolonged expiratory phase with some wheezing. CARDIOVASCULAR: Regular rate and rhythm with S1, S2, no S3. ABDOMEN: Soft and obese. EXTREMITIES: No clubbing, cyanosis or edema. LABORATORY DATA: Arterial blood gas on room air revealed pO2 of 69. White count was elevated. Electrolytes were noted. D-dimer was normal. BNP was slightly elevated. Procalcitonin was slightly elevated. IMPRESSION: 1. Progressive dyspnea, multifactorial, mainly related to acute exacerbation of chronic obstructive pulmonary disease with a component of asthma. 2. Acute nonspecific bronchitis. 3. Hypoxemia related to the above post-shunting from morbid obesity. 4. I contemplated PE, considering the patient's presentation and wheezing along with a D-dimer, which was not elevated, doubt that this is PE. PLAN: 1. Continue current support. 2. Check venous Dopplers of the lower extremities. 3. Reassured the patient that with time, things will improve. 4. Recommend discharging home on steroid metered dose inhaler p.r.n. albuterol. 5. Follow up with me in the office in November/December. I do appreciate the privilege in sharing in the patient's care. JACOB/AVIVA/ARJUN DR: González TID: [id number]
[2021-10-22 07:00] VITALS: BP 190/92
[2021-10-22] MEDS: IPRATRPIUM/ALBUTEROL 0.5/2.5MG 3 ML NEBU. NEB SCH ×4 (07:09→21:20)
[2021-10-22] MEDS: ENOXAPARIN 40 MG/0.4 ML SYRINGE. SQ SCH ×2 (08:26→20:43)
[2021-10-22] MEDS: LACTOBACILLUS RHAMNOSUS GG 1 CAPSULE. PO SCH ×2 (08:27→20:43)
--- NOTE | 2021-10-22 09:36 | PDOC ---
PULMONARY PROGRESS NOTES DATE: 10/22/21 TIME: 09:36 Subjective Patient feels better, now more short of air less wheeze Vitals Vital Signs Date Time Temp Pulse Resp B/P (MAP) Pulse Ox O2 Delivery O2 Flow Rate FiO2 10/22/21 08:27 116 190/92 10/22/21 08:00 Room Air 2.0 10/22/21 07:09 95 10/22/21 07:00 97.5 18 97.5 ROS: No Nausea, No Chest Pain, No Abdominal Pain, No Increase Cough General: Alert Lungs: Wheezing Cardiovascular: S1, S2 Abdomen: Soft Neuro Exam: Alert Extremities: No Edema Skin: Warm Labs Laboratory Tests Test 10/21/21 01:38 10/21/21 02:04 10/21/21 08:53 10/21/21 08:59 White Blood Count 16.3 x10^3/uL (4.0-11.0) Red Blood Count 5.12 x10^6/uL (3.50-5.40) Hemoglobin 14.5 g/dL (12.0-15.5) Hematocrit 43.8 % (36.0-47.0) Mean Corpuscular Volume 86 fL (79-100) Mean Corpuscular Hemoglobin 28 pg (25-35) Mean Corpuscular Hemoglobin Concent 33 g/dL (31-37) Red Cell Distribution Width 13.5 % (11.5-14.5) Platelet Count 350 x10^3/uL (140-400) Neutrophils (%) (Auto) 73 % (31-73) Lymphocytes (%) (Auto) 17 % (24-48) Monocytes (%) (Auto) 6 % (0-9) Eosinophils (%) (Auto) 3 % (0-3) Basophils (%) (Auto) 1 % (0-3) Neutrophils # (Auto) 11.9 x10^3/uL (1.8-7.7) Lymphocytes # (Auto) 2.8 x10^3/uL (1.0-4.8) Monocytes # (Auto) 0.9 x10^3/uL (0.0-1.1) Eosinophils # (Auto) 0.5 x10^3/uL (0.0-0.7) Basophils # (Auto) 0.1 x10^3/uL (0.0-0.2) Prothrombin Time 14.1 SEC (11.7-14.0) Prothromb Time International Ratio 1.1 (0.8-1.1) Activated Partial Thromboplast Time 25 SEC (24-38) D-Dimer (Kate) 0.42 ug/mlFEU (0.00-0.50) Sodium Level 137 mmol/L (136-145) Potassium Level 3.5 mmol/L (3.5-5.1) Chloride Level 100 mmol/L (98-107) Carbon Dioxide Level 29 mmol/L (21-32) Anion Gap 8 (6-14) Blood Urea Nitrogen 11 mg/dL (7-20) Creatinine 1.0 mg/dL (0.6-1.0) Estimated GFR (Cockcroft-Gault) 65.1 BUN/Creatinine Ratio 11 (6-20) Glucose Level 132 mg/dL (70-99) Lactic Acid Level 2.0 mmol/L (0.4-2.0) Calcium Level 9.3 mg/dL (8.5-10.1) Total Bilirubin 0.7 mg/dL (0.2-1.0) Aspartate Amino Transf (AST/SGOT) 23 U/L (15-37) Alanine Aminotransferase (ALT/SGPT) 41 U/L (14-59) Alkaline Phosphatase 72 U/L (46-116) Troponin I High Sensitivity 10 ng/L (4-50) YC-Flg-F-Type Natriuretic Peptide 139 pg/mL (0-124) Total Protein 8.9 g/dL (6.4-8.2) Albumin 4.3 g/dL (3.4-5.0) Albumin/Globulin Ratio 0.9 (1.0-1.7) Procalcitonin 0.39 ng/mL (0.00-0.10) Serum Test, Qualitative Negative (NEG) O2 Saturation 94 % (92-99) Arterial Blood pH 7.47 (7.35-7.45) Arterial Blood pCO2 at Patient Temp 33 mmHg (35-46) Arterial Blood pO2 at Patient Temp 69 mmHg (85-108) Arterial Blood HCO3 24 mmol/L (21-28) Arterial Blood Base Excess 1 mmol/L (-3-3) FiO2 2l nc Urine Collection Type Unknown Urine Color Yellow Urine Clarity Clear Urine pH 5.5 (<5.0-8.0) Urine Specific [place] 1.010 (1.000-1.030) Urine Protein Negative mg/dL (NEG-TRACE) Urine Glucose (UA) Negative mg/dL (NEG) Urine Ketones (Stick) Negative mg/dL (NEG) Urine Blood Moderate (NEG) Urine Nitrite Negative (NEG) Urine Bilirubin Negative (NEG) Urine Urobilinogen Dipstick 0.2 mg/dL (0.2 mg/dL) Urine Leukocyte Esterase Negative (NEG) Urine RBC 3-5 /HPF (0-2) Urine WBC Occ /HPF (0-4) Urine Squamous Epithelial Cells Many /LPF Urine Bacteria 0 /HPF (0-FEW) Urine Mucus Mod /LPF Influenza Type A Antigen Negative (NEGATIVE) Influenza Type B Antigen Negative (NEGATIVE) Test 10/22/21 04:30 White Blood Count 11.7 x10^3/uL (4.0-11.0) Red Blood Count 5.02 x10^6/uL (3.50-5.40) Hemoglobin 14.5 g/dL (12.0-15.5) Hematocrit 43.8 % (36.0-47.0) Mean Corpuscular Volume 87 fL (79-100) Mean Corpuscular Hemoglobin 29 pg (25-35) Mean Corpuscular Hemoglobin Concent 33 g/dL (31-37) Red Cell Distribution Width 14.1 % (11.5-14.5) Platelet Count 346 x10^3/uL (140-400) Neutrophils (%) (Auto) 81 % (31-73) Lymphocytes (%) (Auto) 15 % (24-48) Monocytes (%) (Auto) 5 % (0-9) Eosinophils (%) (Auto) 0 % (0-3) Basophils (%) (Auto) 0 % (0-3) Neutrophils # (Auto) 9.4 x10^3/uL (1.8-7.7) Lymphocytes # (Auto) 1.7 x10^3/uL (1.0-4.8) Monocytes # (Auto) 0.5 x10^3/uL (0.0-1.1) Eosinophils # (Auto) 0.0 x10^3/uL (0.0-0.7) Basophils # (Auto) 0.0 x10^3/uL (0.0-0.2) Sodium Level 141 mmol/L (136-145) Potassium Level 4.4 mmol/L (3.5-5.1) Chloride Level 102 mmol/L (98-107) Carbon Dioxide Level 29 mmol/L (21-32) Anion Gap 10 (6-14) Blood Urea Nitrogen 13 mg/dL (7-20) Creatinine 0.9 mg/dL (0.6-1.0) Estimated GFR (Cockcroft-Gault) 73.5 Glucose Level 130 mg/dL (70-99) Calcium Level 9.6 mg/dL (8.5-10.1) Laboratory Tests Test 10/22/21 04:30 White Blood Count 11.7 x10^3/uL (4.0-11.0) Red Blood Count 5.02 x10^6/uL (3.50-5.40) Hemoglobin 14.5 g/dL (12.0-15.5) Hematocrit 43.8 % (36.0-47.0) Mean Corpuscular Volume 87 fL (79-100) Mean Corpuscular Hemoglobin 29 pg (25-35) Mean Corpuscular Hemoglobin Concent 33 g/dL (31-37) Red Cell Distribution Width 14.1 % (11.5-14.5) Platelet Count 346 x10^3/uL (140-400) Neutrophils (%) (Auto) 81 % (31-73) Lymphocytes (%) (Auto) 15 % (24-48) Monocytes (%) (Auto) 5 % (0-9) Eosinophils (%) (Auto) 0 % (0-3) Basophils (%) (Auto) 0 % (0-3) Neutrophils # (Auto) 9.4 x10^3/uL (1.8-7.7) Lymphocytes # (Auto) 1.7 x10^3/uL (1.0-4.8) Monocytes # (Auto) 0.5 x10^3/uL (0.0-1.1) Eosinophils # (Auto) 0.0 x10^3/uL (0.0-0.7) Basophils # (Auto) 0.0 x10^3/uL (0.0-0.2) Sodium Level 141 mmol/L (136-145) Potassium Level 4.4 mmol/L (3.5-5.1) Chloride Level 102 mmol/L (98-107) Carbon Dioxide Level 29 mmol/L (21-32) Anion Gap 10 (6-14) Blood Urea Nitrogen 13 mg/dL (7-20) Creatinine 0.9 mg/dL (0.6-1.0) Estimated GFR (Cockcroft-Gault) 73.5 Glucose Level 130 mg/dL (70-99) Calcium Level 9.6 mg/dL (8.5-10.1) Medications Active Scripts Medications Dose Route/Sig Max Daily Dose Days Date Category Levofloxacin 500 Mg Tablet 1 Tab PO DAILY 10/21/21 Reported Prednisone 20 Mg Tablet 2 Tab PO DAILY 10/21/21 Reported Impression . IMPRESSION: 1. Progressive dyspnea, multifactorial, mainly related to acute exacerbation of chronic obstructive pulmonary disease with a component of asthma. 2. Acute nonspecific bronchitis. 3. Hypoxemia related to the above post-shunting from morbid obesity. 4. CT angiogram negative for PE 5. Tachycardia 6. Atypical pneumonia IMPRESSION: No definite evidence for central pulmonary embolus, allowing for the limitations of the exam. Patchy groundglass attenuation in the lungs bilaterally suspicious for multifocal pneumonia. Follow-up imaging to resolution is recommended. Plan . Updated 10/22 CT angiogram reviewed Continue current steroids and antibiotics Discharge home on a steroid metered-dose inhaler Follow-up with me in November Tachycardia persist, continue monitoring KASHIF SAWANT MD Oct 22, 2021 09:36
[2021-10-22 10:53] VITALS: BP 193/105
[2021-10-22] MEDS ORDERED: DOXYCYCLINE HYCLATE 100 MG TABLET PO ONE (11:45)
--- NOTE | 2021-10-22 11:56 | PDOC ---
[employer] PROGRESS NOTE Date of Service DOS: DATE: 10/22/21 TIME: 11:48 Chief Complaint Chief Complaint SEPSIS was POA, multifocal pneumonina acute hypoxia respiratory failure, Asthma and acute bronchitis recent COVID infection three weeks ago weak, lethargy, muscle aches, FLU swab negatvie for flu A + B Proph lovenox only, anxiety, situational obesity, BMI 44 History of Present Illness History of Present Illness she reprots feeling much better, still has cough and has coughed some blood tinged sputum now, reassurance given to that will try to suppress cough HR is still 120 at rest, sinus, Vitals/I&O Vitals/I&O: Vital Signs Date Time Temp Pulse Resp B/P (MAP) Pulse Ox O2 Delivery O2 Flow Rate FiO2 10/22/21 10:53 98.1 124 22 193/105 (134) 92 Nasal Cannula 2.0 98.1 I & O 10/21/21 10/21/21 10/22/21 15:00 23:00 07:00 Intake Total 120 ml 200 ml Output Total 500 ml 700 ml 400 ml Balance -500 ml -580 ml -200 ml Physical Exam General: Alert, Oriented X3, Cooperative, mild distress Heart: No murmurs, Other (tachy, reg ) Lungs: Clear ( vol better, ) Abdomen: Normal bowel sounds (obese), Soft, No tenderness Extremities: No clubbing, No edema Skin: No rashes, No breakdown Labs Labs: Laboratory Tests Test 10/22/21 04:30 White Blood Count 11.7 x10^3/uL (4.0-11.0) Red Blood Count 5.02 x10^6/uL (3.50-5.40) Hemoglobin 14.5 g/dL (12.0-15.5) Hematocrit 43.8 % (36.0-47.0) Mean Corpuscular Volume 87 fL (79-100) Mean Corpuscular Hemoglobin 29 pg (25-35) Mean Corpuscular Hemoglobin Concent 33 g/dL (31-37) Red Cell Distribution Width 14.1 % (11.5-14.5) Platelet Count 346 x10^3/uL (140-400) Neutrophils (%) (Auto) 81 % (31-73) Lymphocytes (%) (Auto) 15 % (24-48) Monocytes (%) (Auto) 5 % (0-9) Eosinophils (%) (Auto) 0 % (0-3) Basophils (%) (Auto) 0 % (0-3) Neutrophils # (Auto) 9.4 x10^3/uL (1.8-7.7) Lymphocytes # (Auto) 1.7 x10^3/uL (1.0-4.8) Monocytes # (Auto) 0.5 x10^3/uL (0.0-1.1) Eosinophils # (Auto) 0.0 x10^3/uL (0.0-0.7) Basophils # (Auto) 0.0 x10^3/uL (0.0-0.2) Sodium Level 141 mmol/L (136-145) Potassium Level 4.4 mmol/L (3.5-5.1) Chloride Level 102 mmol/L (98-107) Carbon Dioxide Level 29 mmol/L (21-32) Anion Gap 10 (6-14) Blood Urea Nitrogen 13 mg/dL (7-20) Creatinine 0.9 mg/dL (0.6-1.0) Estimated GFR (Cockcroft-Gault) 73.5 Glucose Level 130 mg/dL (70-99) Calcium Level 9.6 mg/dL (8.5-10.1) Comment Review of Relevant I have reviewed the following items mary (where applicable) has been applied. Medications: Current Medications Medications (Trade) Dose Ordered Sig/[place] Route PRN Reason Start Time Stop Time Status Last Admin Dose Admin Lactobacillus Rhamnosus (Culturelle) 1 cap BID PO 10/21/21 21:00 10/22/21 08:27 Methylprednisolone Sodium Succinate (SOLU-Medrol 40MG VIAL) 40 mg Q8HRS IV 10/21/21 12:00 10/22/21 05:43 Justifications for Admission Other Justification JENNIFER ESTEBAN MD Oct 22, 2021 11:56
[2021-10-22] MEDS: BENZONATATE 100 MG CAPSULE. PO SCH ×2 (12:29→20:43)
--- NOTE | 2021-10-22 12:29 | NUR ---
SS following up with discharge planning. SS reviewed pt chart and discussed with pt RN. Pt is currently requiring oxygen at two liters nasal canula. Pt has no home oxygen. Pulmonology following. Pt on IV Solu-Medrol and PO Doxycycline. Pt has no home oxygen. Discharge plan is currently to home when medically ready for discharge. SS will continue to follow for discharge planning.
[2021-10-22] MEDS: AZTREONAM IV Push 2 GM VIAL. IVP SCH ×2 (14:15→21:06)
[2021-10-22 14:51] VITALS: BP 171/90
[2021-10-22 19:00] VITALS: BP 140/86
[2021-10-22] MEDS: DOXYCYCLINE HYCLATE 100 MG TABLET PO SCH (20:44)
[2021-10-22] MEDS: guaiFENesin/CODEINE 100mg/10mg 5 ML LIQUID PO PRN (22:19)
[2021-10-22 23:20] VITALS: BP 185/96
[2021-10-23] MEDS: ALPRAZolam 0.25 MG TABLET PO PRN (02:16)
[2021-10-23 03:45] VITALS: BP 167/98
[2021-10-23] MEDS: AZTREONAM IV Push 2 GM VIAL. IVP SCH ×2 (05:58→13:56)
[2021-10-23] MEDS: guaiFENesin/CODEINE 100mg/10mg 5 ML LIQUID PO PRN (05:58)
[2021-10-23] MEDS: methylPREDNISolone SOD SUCC PF 40 MG/ML VIAL. IV SCH ×2 (05:58→13:55)
[2021-10-23] MEDS: IPRATRPIUM/ALBUTEROL 0.5/2.5MG 3 ML NEBU. NEB SCH ×2 (06:00→10:00)
[2021-10-23 07:00] VITALS: BP 198/105
--- NOTE | 2021-10-23 07:53 | PDOC ---
PULMONARY PROGRESS NOTES DATE: 10/23/21 TIME: 07:51 Subjective sob better has cough no sputum Vitals Vital Signs Date Time Temp Pulse Resp B/P (MAP) Pulse Ox O2 Delivery O2 Flow Rate FiO2 10/23/21 03:45 98.5 85 23 167/98 (121) 92 Room Air 98.5 10/22/21 14:51 2.0 ROS: No Nausea, No Chest Pain, No Abdominal Pain, No Increase Cough General: Alert Lungs: Wheezing Cardiovascular: S1, S2 Abdomen: Soft Neuro Exam: Alert Extremities: No Edema Skin: Warm Labs Laboratory Tests Test 10/21/21 08:53 10/21/21 08:59 10/22/21 04:30 Urine Collection Type Unknown Urine Color Yellow Urine Clarity Clear Urine pH 5.5 (<5.0-8.0) Urine Specific [place] 1.010 (1.000-1.030) Urine Protein Negative mg/dL (NEG-TRACE) Urine Glucose (UA) Negative mg/dL (NEG) Urine Ketones (Stick) Negative mg/dL (NEG) Urine Blood Moderate (NEG) Urine Nitrite Negative (NEG) Urine Bilirubin Negative (NEG) Urine Urobilinogen Dipstick 0.2 mg/dL (0.2 mg/dL) Urine Leukocyte Esterase Negative (NEG) Urine RBC 3-5 /HPF (0-2) Urine WBC Occ /HPF (0-4) Urine Squamous Epithelial Cells Many /LPF Urine Bacteria 0 /HPF (0-FEW) Urine Mucus Mod /LPF Influenza Type A Antigen Negative (NEGATIVE) Influenza Type B Antigen Negative (NEGATIVE) White Blood Count 11.7 x10^3/uL (4.0-11.0) Red Blood Count 5.02 x10^6/uL (3.50-5.40) Hemoglobin 14.5 g/dL (12.0-15.5) Hematocrit 43.8 % (36.0-47.0) Mean Corpuscular Volume 87 fL (79-100) Mean Corpuscular Hemoglobin 29 pg (25-35) Mean Corpuscular Hemoglobin Concent 33 g/dL (31-37) Red Cell Distribution Width 14.1 % (11.5-14.5) Platelet Count 346 x10^3/uL (140-400) Neutrophils (%) (Auto) 81 % (31-73) Lymphocytes (%) (Auto) 15 % (24-48) Monocytes (%) (Auto) 5 % (0-9) Eosinophils (%) (Auto) 0 % (0-3) Basophils (%) (Auto) 0 % (0-3) Neutrophils # (Auto) 9.4 x10^3/uL (1.8-7.7) Lymphocytes # (Auto) 1.7 x10^3/uL (1.0-4.8) Monocytes # (Auto) 0.5 x10^3/uL (0.0-1.1) Eosinophils # (Auto) 0.0 x10^3/uL (0.0-0.7) Basophils # (Auto) 0.0 x10^3/uL (0.0-0.2) Sodium Level 141 mmol/L (136-145) Potassium Level 4.4 mmol/L (3.5-5.1) Chloride Level 102 mmol/L (98-107) Carbon Dioxide Level 29 mmol/L (21-32) Anion Gap 10 (6-14) Blood Urea Nitrogen 13 mg/dL (7-20) Creatinine 0.9 mg/dL (0.6-1.0) Estimated GFR (Cockcroft-Gault) 73.5 Glucose Level 130 mg/dL (70-99) Calcium Level 9.6 mg/dL (8.5-10.1) Medications Active Scripts Medications Dose Route/Sig Max Daily Dose Days Date Category Levofloxacin 500 Mg Tablet 1 Tab PO DAILY 10/21/21 Reported Prednisone 20 Mg Tablet 2 Tab PO DAILY 10/21/21 Reported Impression . IMPRESSION: 1. Progressive dyspnea, multifactorial, mainly related to acute exacerbation of chronic obstructive pulmonary disease with a component of asthma. 2. Acute nonspecific bronchitis. 3. Hypoxemia related to the above post-shunting from morbid obesity. 4. CT angiogram negative for PE 5. Tachycardia 6. Atypical pneumonia IMPRESSION: No definite evidence for central pulmonary embolus, allowing for the limitations of the exam. Patchy groundglass attenuation in the lungs bilaterally suspicious for multifocal pneumonia. Follow-up imaging to resolution is recommended. Plan . 10/23 02 titration cont solumderol 40 q 8hrs not dose change still has cough wheezing cont abx psg as out pt cta reviewed, no pe No definite evidence for central pulmonary embolus, allowing for the limitations of the exam. Patchy groundglass attenuation in the lungs bilaterally suspicious for multifocal pneumonia. Follow-up imaging to resolution is recommended. Updated 10/22 CT angiogram reviewed Continue current steroids and antibiotics Discharge home on a steroid metered-dose inhaler Follow-up with me in November Tachycardia persist, continue monitoring NERY MILAN MD Oct 23, 2021 07:53
[2021-10-23] MEDS: ENOXAPARIN 40 MG/0.4 ML SYRINGE. SQ SCH (08:15)
[2021-10-23] MEDS: DOXYCYCLINE HYCLATE 100 MG TABLET PO SCH (08:16)
[2021-10-23] MEDS: BENZONATATE 100 MG CAPSULE. PO SCH ×2 (08:17→13:58)
[2021-10-23] MEDS: LACTOBACILLUS RHAMNOSUS GG 1 CAPSULE. PO SCH (08:17)
[2021-10-23 11:00] VITALS: BP 212/105
[2021-10-23] MEDS ORDERED: BENZ-8 PO (13:12)
[2021-10-23] MEDS ORDERED: GUAI120L35 PO (13:12)
[2021-10-23] MEDS ORDERED: PRED-220 PO (13:12)
[2021-10-23] MEDS ORDERED: DOXY100T PO (13:12)
[2021-10-23] MEDS ORDERED: AMLO5TAB4 PO (13:12)
--- NOTE | 2021-10-23 13:18 | PDOC3 ---
Discharge Summary Visit Information Date of Admission: Oct 21, 2021 Date of Discharge: Oct 23, 2021 Final Diagnosis SEPSIS was POA, multifocal pneumonina acute hypoxia respiratory failure, Asthma and acute bronchitis recent COVID infection three weeks ago weak, lethargy, muscle aches, FLU swab negatvie for flu A + B Proph lovenox only, anxiety, situational obesity, BMI 44 Brief Hospital Course Allergies Allergies Coded Allergies Type Severity Reaction Last Updated Verified Penicillins Allergy Severe AIRWAY SWELLING 10/21/21 Yes Vital Signs Vital Signs Date Time Temp Pulse Resp B/P (MAP) Pulse Ox O2 Delivery O2 Flow Rate FiO2 10/23/21 11:00 99.2 115 23 212/105 (140) 93 Room Air 99.2 10/23/21 08:00 2.0 Lab Results Laboratory Tests Test 10/22/21 04:30 White Blood Count 11.7 x10^3/uL (4.0-11.0) Red Blood Count 5.02 x10^6/uL (3.50-5.40) Hemoglobin 14.5 g/dL (12.0-15.5) Hematocrit 43.8 % (36.0-47.0) Mean Corpuscular Volume 87 fL (79-100) Mean Corpuscular Hemoglobin 29 pg (25-35) Mean Corpuscular Hemoglobin Concent 33 g/dL (31-37) Red Cell Distribution Width 14.1 % (11.5-14.5) Platelet Count 346 x10^3/uL (140-400) Neutrophils (%) (Auto) 81 % (31-73) Lymphocytes (%) (Auto) 15 % (24-48) Monocytes (%) (Auto) 5 % (0-9) Eosinophils (%) (Auto) 0 % (0-3) Basophils (%) (Auto) 0 % (0-3) Neutrophils # (Auto) 9.4 x10^3/uL (1.8-7.7) Lymphocytes # (Auto) 1.7 x10^3/uL (1.0-4.8) Monocytes # (Auto) 0.5 x10^3/uL (0.0-1.1) Eosinophils # (Auto) 0.0 x10^3/uL (0.0-0.7) Basophils # (Auto) 0.0 x10^3/uL (0.0-0.2) Sodium Level 141 mmol/L (136-145) Potassium Level 4.4 mmol/L (3.5-5.1) Chloride Level 102 mmol/L (98-107) Carbon Dioxide Level 29 mmol/L (21-32) Anion Gap 10 (6-14) Blood Urea Nitrogen 13 mg/dL (7-20) Creatinine 0.9 mg/dL (0.6-1.0) Estimated GFR (Cockcroft-Gault) 73.5 Glucose Level 130 mg/dL (70-99) Calcium Level 9.6 mg/dL (8.5-10.1) Brief Hospital Course Ms. Seay is a 31 old female, marce wt acute hypoxia, multifocal pneumonai, recent COVID infection a month ago, steroids, nebs, antitussieve, abx, Discharge Information Condition at Discharge: Improved Follow Up: Weeks Disposition/Orders: D/C to Home Scheduled Levofloxacin (Levofloxacin) 500 Mg Tablet, 1 TAB PO DAILY for , #7 (Reported) Entered as Reported by: Nirali Aguirre on 10/21/21533 Last Action: New Order on 10/21/21533 by Nirali Aguirre Prednisone (Prednisone) 20 Mg Tablet, 2 TAB PO DAILY for , #5 (Reported) Entered as Reported by: Nirali Aguirre on 10/21/21533 Last Taken: Unknown Dose on 10/20/21 Last Action: New Order on 10/21/21533 by Nirali Aguirre Scheduled PRN Guaifenesin/Codeine Phosphate (Codeine-Guaifen 10-100 mg/5 ml) 120 Ml Liquid, 5 ML PO PRN Q6HRS PRN for COUGH, #80 Prescribed by: JENNIFER ESTEBAN on 10/23/21 1313 Patient Instructions Patient Instructions > 30 min face to face discussion Justicifation of Admission Dx: Justifications for Admission: Justification of Admission Dx: Yes JENNIFER ESTEBAN MD Oct 23, 2021 13:18
[2021-10-23 15:00] VITALS: BP 208/98
[2021-10-23] MEDS ORDERED: IPRA4AER IH (16:25)
== END 2021-10-23 16:50 | disposition home or self-care (01) | DRG 871 ==
LOC: ER 01:22 → 6 SOUTH 03:20
PROVIDERS: ADMIT Internal Medicine; ATTEND Internal Medicine
DX: A41.9 Sepsis, unspecified organism (principal); J96.01 Acute respiratory failure with hypoxia; J18.9 Pneumonia, unspecified organism; J44.0 Chronic obstructive pulmonary disease with (acute) lower respiratory infection; J44.1 Chronic obstructive pulmonary disease with (acute) exacerbation; Z68.41 Body mass index [BMI] 40.0-44.9, adult; J20.9 Acute bronchitis, unspecified; E66.01 Morbid (severe) obesity due to excess calories; F17.200 Nicotine dependence, unspecified, uncomplicated; F41.9 Anxiety disorder, unspecified; Z82.5 Family history of asthma and other chronic lower respiratory diseases; Z86.16 Personal history of COVID-19; Z88.0 Allergy status to penicillin
CPT/HCPCS: 36415; 36600; 71045; 71275; 80048; 80053; 81001; 82805; 83605; 83880; 84145; 84484; 84703; 85025; 85379; 85610; 85730; 87040; 87428; 93005; 94640; 94760; 96365; 96375; J1650; J2920; J2930; J3475; J3490; 99285-25; G0378; J7613

== ENCOUNTER 2021-12-21 07:43 | Inpatient (IN) | payer MEDICAID ==
[~2021-12-21] VITALS: Ht 160 cm; Wt 125.0 kg
[~2021-12-21 07:43] MED LIST: AMLO5TAB4 PO; BENZ-8 PO; DOXY100T PO; GUAI120L35 PO; IPRA4AER IH; LEVO500T9 PO; PRED-220 PO; PRED20TA PO
--- NOTE | 2021-12-21 08:17 | ED.ADGEN ---
Past Medical History Additional Past Medical Histor: obesity Past Surgical History: No Surgical History Smoking Status: Former Smoker Alcohol Use: None General Adult EDM: Chief Complaint: SHORTNESS OF BREATH HPI: HPI: Patient is a 31-year-old female who arrives ambulatory to the emergency department complaining of difficulty breathing. Patient reports she is experienced difficulty breathing over the past 3 weeks. Patient reports she was recently prescribed albuterol however she does not believe she can catch her breath. Patient states this is gotten actually worse in the past couple days. Patient reports a low-grade fevers in addition to chest tightness associated with this. Patient states prior to this difficulty breathing, she was diagnosed with pneumonia however she reports she recovered. She denies any recent travel. She further states she is vaccinated against COVID-19 as well. She is awake, alert and nontoxic-appearing Review of Systems: Review of Systems: Constitutional: Reports fatigue and fevers. Denies chills. [] Eyes: Denies change in visual acuity. [] HENT: Denies nasal congestion or sore throat. [] Respiratory: Reports shortness of air as well as cough. [] Cardiovascular: Reports chest pain. Denies edema. [] GI: Denies abdominal pain, nausea, vomiting, bloody stools or diarrhea. [] : Denies dysuria. [] Musculoskeletal: Denies back pain or joint pain. [] Integument: Denies rash. [] Neurologic: Denies headache, focal weakness or sensory changes. [] Endocrine: Denies polyuria or polydipsia. [] Lymphatic: Denies swollen glands. [] Psychiatric: Denies depression or anxiety. [] Current Medications: Current Medications Medications (Trade) Dose Ordered Sig/Carmenza Start Time Stop Time Status Last Admin Dose Admin Info (CONTRAST GIVEN -- Rx MONITORING) 1 each PRN DAILY PRN 12/21/21 09:45 12/23/21 09:44 Iohexol (Omnipaque 350 Mg/ml) 100 ml 1X ONCE 12/21/21 09:45 12/21/21 09:46 DC 12/21/21 09:52 100 ML Methylprednisolone Sodium Succinate (SOLU-Medrol 125MG VIAL) 125 mg 1X ONCE 12/21/21 08:45 12/21/21 08:46 DC 12/21/21 08:45 125 MG Allergies: Allergies: Allergies Coded Allergies Type Severity Reaction Last Updated Verified Penicillins Allergy Severe AIRWAY SWELLING 10/21/21 Yes Physical Exam: PE: Constitutional: Morbidly obese with mild respiratory distress well developed, well nourished, non-toxic appearance. [] HENT: Normocephalic, atraumatic, bilateral external ears normal, oropharynx moist, no oral exudates, nose normal. [] Eyes: PERRLA, EOMI, conjunctiva normal, no discharge. [] Neck: Normal range of motion, no tenderness, supple, no stridor. [] Cardiovascular:Heart rate regular rhythm, no murmur [] Lungs & Thorax:Tachypnea with diminished breath sounds bilaterally. [] Abdomen: Bowel sounds normal, soft, no tenderness, no masses, no pulsatile masses. [] Skin: Warm, dry, no erythema, no rash. [] Back: No tenderness, no CVA tenderness. [] Extremities: No tenderness, no cyanosis, no clubbing, ROM intact, no edema. [] Neurologic: Alert and oriented X 3, normal motor function, normal sensory function, no focal deficits noted. [] Psychologic: Affect normal, judgement normal, mood normal. [] Current Patient Data: Labs: Laboratory Tests Test 12/21/21 08:44 White Blood Count 12.1 x10^3/uL (4.0-11.0) H Red Blood Count 5.07 x10^6/uL (3.50-5.40) Hemoglobin 14.7 g/dL (12.0-15.5) Hematocrit 43.2 % (36.0-47.0) Mean Corpuscular Volume 85 fL (79-100) Mean Corpuscular Hemoglobin 29 pg (25-35) Mean Corpuscular Hemoglobin Concent 34 g/dL (31-37) Red Cell Distribution Width 12.9 % (11.5-14.5) Platelet Count 272 x10^3/uL (140-400) Neutrophils (%) (Auto) 81 % (31-73) H Lymphocytes (%) (Auto) 14 % (24-48) L Monocytes (%) (Auto) 2 % (0-9) Eosinophils (%) (Auto) 3 % (0-3) Basophils (%) (Auto) 1 % (0-3) Neutrophils # (Auto) 9.8 x10^3/uL (1.8-7.7) H Lymphocytes # (Auto) 1.6 x10^3/uL (1.0-4.8) Monocytes # (Auto) 0.3 x10^3/uL (0.0-1.1) Eosinophils # (Auto) 0.3 x10^3/uL (0.0-0.7) Basophils # (Auto) 0.1 x10^3/uL (0.0-0.2) Maternal Serum HCG Beta Subunit < 1 mIU/mL (0-5) Sodium Level 138 mmol/L (136-145) Potassium Level 3.8 mmol/L (3.5-5.1) Chloride Level 103 mmol/L (98-107) Carbon Dioxide Level 26 mmol/L (21-32) Anion Gap 9 (6-14) Blood Urea Nitrogen 8 mg/dL (7-20) Creatinine 0.8 mg/dL (0.6-1.0) Estimated GFR (Cockcroft-Gault) 84.2 BUN/Creatinine Ratio 10 (6-20) Glucose Level 125 mg/dL (70-99) H Calcium Level 9.7 mg/dL (8.5-10.1) Total Bilirubin 0.4 mg/dL (0.2-1.0) Aspartate Amino Transferase (AST) 27 U/L (15-37) Alanine Aminotransferase (ALT) 41 U/L (14-59) Alkaline Phosphatase 64 U/L (46-116) Troponin I High Sensitivity 10 ng/L (4-50) MI-Wzj-Q-Type Natriuretic Peptide 98 pg/mL (0-124) Total Protein 8.5 g/dL (6.4-8.2) H Albumin 3.9 g/dL (3.4-5.0) Albumin/Globulin Ratio 0.8 (1.0-1.7) L Influenza Type A Antigen Negative (NEGATIVE) Influenza Type B Antigen Negative (NEGATIVE) SARS-CoV-2 Antigen (Rapid) Negative (NEGATIVE) Laboratory Tests 12/21/21 08:44 Laboratory Tests 12/21/21 08:44 Vital Signs: Vital Signs Date Time Temp Pulse Resp B/P (MAP) Pulse Ox O2 Delivery O2 Flow Rate FiO2 12/21/21 07:58 98.9 110 20 196/109 (138) 92 Room Air 98.9 EKG: EKG: EKG was obtained at 8:54 AM reveals a sinus tachycardia with a ventricular rate of 108 bpm. There are no acute ST/T wave changes to denote ischemia. There is no STEMI present. [] Heart Score: C/O Chest Pain: Yes HEART Score for Chest Pain: HEART Score for Chest Pain Response (Comments) Value History Slighlty/Non-Suspicious 0 ECG Normal 0 Age < 45 0 Risk Factors 1 or 2 Risk Factors 1 Troponin < Normal Limit 0 Total 1 Risk Factors: Risk Factors: DM, Current or recent (<one month) smoker, HTN, HLP, family history of CAD, obesity. Risk Scores: Score 0 - 3: 2.5% MACE over next 6 weeks - Discharge Home Score 4 - 6: 20.3% MACE over next 6 weeks - Admit for Clinical Observation Score 7 - 10: 72.7% MACE over next 6 weeks - Early Invasive Strategies Radiology/Procedures: Radiology/Procedures: [][id number] [place] [address] IMAGING REPORT Signed PATIENT: CLAYDOLORES Miranda ACCOUNT: [id number] : 1990 LOCATION: ER AGE: 31 SEX: F EXAM STATUS: REG ER ORD. PHYSICIAN: EDU CONWAY DO REASON: Shortness of air PROCEDURE: PORTABLE CHEST 1V XR CHEST 1V INDICATION: Shortness of air . COMPARISON STUDY: 10/21/2021. FINDINGS: Lungs: Normal lung volume. No pulmonary mass or consolidation. The tracheobronchial tree and hilar structures are normal. Pleura: No pleural effusion or pneumothorax. Heart and Mediastinum: The cardiomediastinal silhouette is normal. The great vessels of the thorax are normal. Bones and Soft Tissues: The bones and soft tissues are within normal limits. IMPRESSION: No acute cardiopulmonary process. Electronically signed by: Que العلي MD (12/21/2021 8:28 AM) [id number] DICTATED and SIGNED BY: QUE العلي MD DATE: 12/21/[address] [facility] [address] [place], [place] [id number] IMAGING REPORT Signed PATIENT: DOLORES WILLIAMSON ACCOUNT: [id number] : 1990 LOCATION: ER AGE: 31 SEX: F EXAM STATUS: REG ER ORD. PHYSICIAN: EDU CONWAY DO REASON: Shortness of air PROCEDURE: CT ANGIOGRAPHY CHEST PQRS Compliance Statement: One or more of the following individualized dose reduction techniques were utilized for this examination: 1. Automated exposure control 2. Adjustment of the mA and/or kV according to patient size 3. Use of iterative reconstruction technique CTA CHEST 12/21/2021 9:33 AM INDICATION: Shortness of air COMPARISON: CTA chest 10/21/2021 TECHNIQUE: Axial CT images of the chest were obtained after the intravenous administration of nonionic contrast. Coronal and sagittal reformats are provided. Maximum intensity projection images of the thoracic vasculature are provided. FINDINGS: The thyroid gland is normal in appearance. There are no pathologically enlarged axillary, mediastinal or hilar lymph nodes. The heart size is within normal limits. No significant pericardial effusion. Thoracic aorta is normal in course and caliber. There is adequate opacification of the pulmonary arterial system. Evaluation is degraded by motion artifact which limits evaluation of the segmental and subsegmental pulmonary arteries bilaterally. No central pulmonary embolus is identified. There are no suspicious solid noncalcified pulmonary nodules. Patchy groundglass opacities are identified within the lungs predominantly involving the upper lobes and to a lesser extent the lower lobes, progressed since the prior examination from October 21, 2021 findings may represent a pneumonitis of infectious/inflammatory etiology. There are no pleural effusions. No pulmonary vascular congestion or pneumothorax. Visualized portions of the upper abdomen are within normal limits. Coarse calcification identified within the right hepatic lobe. No suspicious osseous lesions are visualized. IMPRESSION: There is no evidence for acute or chronic pulmonary embolism with limited evaluation of segmental and subsegmental pulmonary arteries secondary to respiratory motion. Patchy groundglass opacities are identified within the lungs predominantly involving the upper lobes and to a lesser extent the lower lobes, progressed since the prior examination from October 21, 2021 findings may represent a pneumonitis of infectious/inflammatory etiology. 3 month follow-up chest CT is recommended to ensure resolution. Electronically signed by: Analia Sow MD (12/21/2021 10:22 AM) [id number] DICTATED and SIGNED BY: ANALIA SOW MD DATE: 12/21/21 1013 Course & Med Decision Making: Course & Med Decision Making Pertinent Labs and Imaging studies reviewed. (See chart for details) [] Dragon Disclaimer: Dragon Disclaimer: This electronic medical record was generated, in whole or in part, using a voice recognition dictation system. Departure Departure Impression: Primary Impression: Elevated blood pressure reading Additional Impression: Acute hypoxemic respiratory failure Disposition: ADMITTED INPATIENT Admitting Physician: HIMS Condition: STABLE Referrals: UNKNOWN PCP NAME (PCP) Problem Qualifiers EDU CONWAY DO Dec 21, 2021 08:17
--- NOTE | 2021-12-21 08:31 | RAD ---
XR CHEST 1V INDICATION: Shortness of air . COMPARISON STUDY: 10/21/2021. FINDINGS: Lungs: Normal lung volume. No pulmonary mass or consolidation. The tracheobronchial tree and hilar st ructures are normal. Pleura: No pleural effusion or pneumothorax. Heart and Mediastinum: The cardiomediastinal silhouette is normal. The great vessels of the thorax ar e normal. Bones and Soft Tissues: The bones and soft tissues are within normal limits. IMPRESSION: No acute cardiopulmonary process. Electronically signed by: Vahid العلي MD (12/21/2021 8:28 AM) [id number]
[2021-12-21] MEDS ORDERED: methylPREDNISolone SOD SUCC PF 125 MG/2 ML VIAL. IV ONE (08:45)
[2021-12-21 08:53] LABS: BASO # 0.1 x10^3/uL (0.0-0.2); BASO % 1 % (0-3); EOS # 0.3 x10^3/uL (0.0-0.7); EOS % 3 % (0-3); HEMATOCRIT 43.2 % (36.0-47.0); HEMOGLOBIN 14.7 g/dL (12.0-15.5); LYMPH # 1.6 x10^3/uL (1.0-4.8); LYMPH % 14 % (24-48); MEAN CORPUSCULAR HEMOGLOBIN 29 pg (25-35); MEAN CORPUSCULAR HGB CONC 34 g/dL (31-37); MEAN CORPUSCULAR VOLUME 85 fL (79-100); MONO # 0.3 x10^3/uL (0.0-1.1); MONO % 2 % (0-9); NEUT # 9.8 x10^3/uL (1.8-7.7); NEUT % 81 % (31-73); PLATELET COUNT 272 x10^3/uL (140-400); RED BLOOD COUNT 5.07 x10^6/uL (3.50-5.40); RED CELL DISTRIBUTION WIDTH 12.9 % (11.5-14.5); WHITE BLOOD COUNT 12.1 x10^3/uL (4.0-11.0)
[2021-12-21 09:06] LABS: CALCIUM 9.7 mg/dL (8.5-10.1); CREATININE 0.8 mg/dL (0.6-1.0); GFR 84.2; POTASSIUM 3.8 mmol/L (3.5-5.1)
[2021-12-21 09:12] LABS: INFLUENZA A PATIENT NEGATIVE (NEGATIVE); INFLUENZA B PATIENT NEGATIVE (NEGATIVE)
[2021-12-21 09:14] LABS: ALBUMIN 3.9 g/dL (3.4-5.0); ALBUMIN/GLOBULIN RATIO 0.8 (1.0-1.7); TOTAL BILIRUBIN 0.4 mg/dL (0.2-1.0); TOTAL PROTEIN 8.5 g/dL (6.4-8.2)
[2021-12-21] MEDS ORDERED: IOHEXOL 350 MG/ML 100 ML VIAL. IV ONE (09:45)
[2021-12-21] MEDS ORDERED: CONTRAST GIVEN. MC PRN (09:45)
--- NOTE | 2021-12-21 10:24 | RAD ---
PQRS Compliance Statement: One or more of the following individualized dose reduction techniques were utilized for this examinat ion: 1. Automated exposure control 2. Adjustment of the mA and/or kV according to patient size 3. Use of iterative reconstruction technique CTA CHEST 12/21/2021 9:33 AM INDICATION: Shortness of air COMPARISON: CTA chest 10/21/2021 TECHNIQUE: Axial CT images of the chest were obtained after the intravenous administration of nonioni c contrast. Coronal and sagittal reformats are provided. Maximum intensity projection images of the t horacic vasculature are provided. FINDINGS: The thyroid gland is normal in appearance. There are no pathologically enlarged axillary, mediastinal or hilar lymph nodes. The heart size is within normal limits. No significant pericardial effusion. T horacic aorta is normal in course and caliber. There is adequate opacification of the pulmonary arterial system. Evaluation is degraded by motion ar tifact which limits evaluation of the segmental and subsegmental pulmonary arteries bilaterally. No c entral pulmonary embolus is identified. There are no suspicious solid noncalcified pulmonary nodules. Patchy groundglass opacities are identi fied within the lungs predominantly involving the upper lobes and to a lesser extent the lower lobes, progressed since the prior examination from October 21, 2021 findings may represent a pneumonitis o f infectious/inflammatory etiology. There are no pleural effusions. No pulmonary vascular congestion or pneumothorax. Visualized portions of the upper abdomen are within normal limits. Coarse calcification identified wi thin the right hepatic lobe. No suspicious osseous lesions are visualized. IMPRESSION: There is no evidence for acute or chronic pulmonary embolism with limited evaluation of segmental and subsegmental pulmonary arteries secondary to respiratory motion. Patchy groundglass opacities are identified within the lungs predominantly involving the upper lobes and to a lesser extent the lower lobes, progressed since the prior examination from October 21, 2021 findings may represent a pneumonitis of infectious/inflammatory etiology. 3 month follow-up chest CT is recommended to ensure resolution. Electronically signed by: Ally Youngblood MD (12/21/2021 10:22 AM) [id number]
[2021-12-21] MEDS ORDERED: ONDANSETRON PF 4 MG/2 ML VIAL. IVP PRN (10:45)
[2021-12-21] MEDS ORDERED: cefTRIAXone IV Push 1 GM VIAL. IVP SCH (10:45)
[2021-12-21] MEDS ORDERED: IV NORMAL SALINE 1000ML BAG 1,000 ML IV ONE (11:00)
--- NOTE | 2021-12-21 11:13 | HP ---
DATE OF SERVICE: 12/21/2021 ADMIT DATE: 12/21/2021 CHIEF COMPLAINT: Shortness of breath. HISTORY OF PRESENT ILLNESS: The patient is a pleasant 31-year-old overweight female who smokes. She presents with shortness of breath. She has some wheezing and a cough. It sounds like she probably has asthma and bronchitis. While in the ER, she also has pressures into the 195 systolically. I discussed the case with ER physician. We are going to admit the patient, give her IV antibiotics, breathing treatments, oxygen, steroids and antibiotics. PAST MEDICAL HISTORY: Tobacco abuse, overweight, possible asthma. ALLERGIES: PENICILLIN. FAMILY HISTORY: Diabetes. SOCIAL HISTORY: She smokes. No drink or drugs. She works. MEDICATIONS: Reviewed. Please refer to the MRAD. REVIEW OF SYSTEMS: GENERAL: No history of weight change, weakness or fevers. SKIN: No bruising, hair changes or rashes. EYES: No blurred, double or loss of vision. NOSE AND THROAT: No history of nosebleeds, hoarseness or sore throat. HEART: No history of palpitations, chest pain or shortness of breath on exertion. PULMONARY: She complains of shortness of breath. GASTROINTESTINAL: Denies changes in appetite, nausea, vomiting, diarrhea or constipation. GENITOURINARY: No history of frequency, urgency, hesitancy or nocturia. NEUROLOGIC: Denies history of numbness, tingling, tremor or weakness. PSYCHIATRIC: No history of panic, anxiety or depression. ENDOCRINE: No history of heat or cold intolerance, polyuria or polydipsia. EXTREMITIES: Denies muscle weakness, joint pain, pain on walking or stiffness. PHYSICAL EXAMINATION: VITAL SIGNS: Blood pressure is 195/110. GENERAL: No apparent distress. Alert and oriented. HEENT: Normal cephalic atraumatic, external auditory canals are patent EYES: Extraocular muscles are intact, pupils are equally round and reactive to light and accommodation MUSCULOSKELETAL: Well developed, well nourished, good range of motion ENDOCRINE: No thyromegaly was palpated LYMPHATICS: No cervical chain or axillary nodes were noted HEMATOPOIETIC: No bruising NECK: Supple, no JVD, no thyromegaly was noted. LUNGS: She has some slight wheezing with a cough. HEART: RRR, S1, S2 present. Peripheral pulses intact, no obvious murmurs were noted. ABDOMEN: Soft, nontender. Positive bowel sounds no organomegaly, normal bowel sounds. EXTREMITIES: Without any cyanosis, clubbing, or edema. Pedal pulses intact, Homans sign is negative. NEUROLOGIC: Normal speech, normal tone. A and O x 3, moves all extremities, no obvious focal deficits. PSYCHIATRIC: Normal affect, normal mood. Stable. SKIN: No ulcerations or rashes, good skin turgor, no jaundice. VASCULAR: Good capillary refill, neurovascular bundle appears to be intact. ASSESSMENT AND PLAN: Respiratory failure, suspect asthma and/or bronchitis with incidental finding of hypertensive urgency. The patient will be admitted. We will start IV antibiotics, breathing treatments, IV steroids, oxygen, home medications, deep venous thrombosis prophylaxis. Full code. P.r.n. antihypertensives, p.r.n. Zofran. ANSHUL/ZEESHAN DR: Angi TID: [id number]
[2021-12-21 11:54] VITALS: BP 161/111
[2021-12-21] MEDS ORDERED: AZITHROMYCIN 250 MG TABLET. PO ONE (12:30)
[2021-12-21] MEDS: ALBUTEROL SULFATE 8GM INHALER. INH PRN (12:54)
[2021-12-21] MEDS: HYDROcodone/APAP 5/325MG 1 TAB TABLET PO PRN ×2 (12:55→21:05)
--- NOTE | 2021-12-21 14:30 | CONS ---
DATE OF CONSULTATION: 12/21/2021 PULMONARY CONSULTATION ATTENDING PHYSICIAN: Maryuri Petty DO REASON FOR CONSULTATION: Dyspnea, abnormal CT chest. HISTORY OF PRESENT ILLNESS: The patient is a 31-year-old morbidly obese female with a BMI of 48.8. She has 10 years of tobacco use. She was brought into the hospital with complaint of wheezing and a cough. The patient states that she had COVID in the month of August. She was hospitalized in September of this year. At that time, she had an abnormal CT chest with ground-glass opacities in the lungs. The patient states that she has similar symptoms with some coughing. She does not have any fever. She does have some wheezing. She was in the process of getting a physician seen. She is using her inhalers. She has never been formally diagnosed with asthma. The patient underwent CT chest, which was reviewed by me. There are bilateral ground-glass opacities. It has slightly progressed in both the lungs. Currently, she is requiring oxygen. I have been asked to see her for further evaluation. PAST MEDICAL HISTORY: Significant for history of morbid obesity. History of COVID-19 viral pneumonia in August of this year. History of likely reactive airway disease since COVID. PAST SURGICAL HISTORY: No recent surgery. ALLERGIES: PENICILLIN. FAMILY HISTORY: Diabetes. SOCIAL HISTORY: Smoked for about 10 years. MEDICATIONS: Reviewed. REVIEW OF SYSTEMS: A 12-point review of system obtained. Pertinent positives discussed in my present illness, otherwise noncontributory. All systems that were negative were reviewed as well. PHYSICAL EXAMINATION: VITAL SIGNS: Reviewed. Afebrile. Her pulse ox is 97% on 2 liters. NECK: Supple. LUNGS: With diminished breath sounds. CARDIOVASCULAR: With a regular rate. ABDOMEN: Soft, obese. EXTREMITIES: With no pitting edema. Her CT chest were reviewed. I am unable to visualize the labs as [facility] is down. IMPRESSION: 1. Acute hypoxic respiratory failure secondary to reactive airway disease with mild exacerbation. She probably has developed reactive airway disease since her diagnosis of COVID this year. 2. Abnormal CT chest with ground glass infiltrates bilaterally. Mild progression. I suspect this is likely pneumonitis from residual COVID. Clinically, less likely any interstitial lung disease. 3. Minimal tobacco use. RECOMMENDATIONS: 1. Discussed with the patient. At this time, I will gradually wean the FiO2 down to keep saturations 92% and above. 2. Bronchodilators. Once COVID is ruled out, then nebulizer treatment. 3. Add Steroids. 4. Obtain sedimentation rate. 5. Expect a response to her CT chest findings with steroids. 6. Likely discharge in next [address]: Emilia TID: [id number] MTDD
--- NOTE | 2021-12-21 15:15 | EKG ---
[facility] [address] [place] [address] Test Date: 2021-12-21 Test Time: 08:54:46 Pat Name: DOLORES WILLIAMSON Department: Room: [facility] Gender: F Purchaser: : 1990 Requested By: EDU CONWAY Order Number: [id number] Reading MD: Ez Hodge Measurements Intervals [place] Rate: 108 P: 53 AL: 150 QRS: 51 QRSD: 90 T: 32 QT: 338 QTc: 457 Interpretive Statements SINUS TACHYCARDIA Electronically Signed On 12-22-2021 16:42:37 CDT by Ez Hodge
[2021-12-21 15:16] VITALS: BP 186/106
[2021-12-21] MEDS: cloNIDine HCL 0.1 MG TABLET PO SCH ×2 (15:16→21:05)
[2021-12-21 19:00] VITALS: BP 141/94
[2021-12-21 23:00] VITALS: BP 129/94
[2021-12-22 03:00] VITALS: BP 150/68
[2021-12-22 07:00] VITALS: BP 153/90
[2021-12-22] MEDS: IPRATRPIUM/ALBUTEROL 0.5/2.5MG 3 ML NEBU. NEB SCH ×4 (08:00→18:55)
[2021-12-22] MEDS: BUDESONIDE 0.5 MG/2 ML NEBU. NEB SCH ×2 (08:00→18:55)
[2021-12-22] MEDS: HYDROcodone/APAP 5/325MG 1 TAB TABLET PO PRN (08:06)
[2021-12-22] MEDS: AZITHROMYCIN 250 MG TABLET. PO SCH (10:35)
[2021-12-22] MEDS: predniSONE 20 MG TABLET PO SCH (10:35)
[2021-12-22] MEDS: cloNIDine HCL 0.1 MG TABLET PO SCH ×3 (10:36→21:46)
[2021-12-22 11:00] VITALS: BP 153/78
--- NOTE | 2021-12-22 11:41 | PDOC ---
PULMONARY PROGRESS NOTES DATE: 12/22/21 TIME: 11:40 Subjective Complain of dyspnea with exertion when she uses no oxygen Vitals Vital Signs Date Time Temp Pulse Resp B/P (MAP) Pulse Ox O2 Delivery O2 Flow Rate FiO2 12/22/21 10:36 97 153/90 12/22/21 08:06 Nasal Cannula 2.0 12/22/21 07:00 98.4 20 92 98.4 General: Alert, No acute distress Lungs: Clear Cardiovascular: S1, S2 Abdomen: Soft Extremities: No Edema Labs Laboratory Tests Test 12/21/21 08:44 12/21/21 20:50 White Blood Count 12.1 x10^3/uL (4.0-11.0) Red Blood Count 5.07 x10^6/uL (3.50-5.40) Hemoglobin 14.7 g/dL (12.0-15.5) Hematocrit 43.2 % (36.0-47.0) Mean Corpuscular Volume 85 fL (79-100) Mean Corpuscular Hemoglobin 29 pg (25-35) Mean Corpuscular Hemoglobin Concent 34 g/dL (31-37) Red Cell Distribution Width 12.9 % (11.5-14.5) Platelet Count 272 x10^3/uL (140-400) Neutrophils (%) (Auto) 81 % (31-73) Lymphocytes (%) (Auto) 14 % (24-48) Monocytes (%) (Auto) 2 % (0-9) Eosinophils (%) (Auto) 3 % (0-3) Basophils (%) (Auto) 1 % (0-3) Neutrophils # (Auto) 9.8 x10^3/uL (1.8-7.7) Lymphocytes # (Auto) 1.6 x10^3/uL (1.0-4.8) Monocytes # (Auto) 0.3 x10^3/uL (0.0-1.1) Eosinophils # (Auto) 0.3 x10^3/uL (0.0-0.7) Basophils # (Auto) 0.1 x10^3/uL (0.0-0.2) Maternal Serum HCG Beta Subunit < 1 mIU/mL (0-5) Sodium Level 138 mmol/L (136-145) Potassium Level 3.8 mmol/L (3.5-5.1) Chloride Level 103 mmol/L (98-107) Carbon Dioxide Level 26 mmol/L (21-32) Anion Gap 9 (6-14) Blood Urea Nitrogen 8 mg/dL (7-20) Creatinine 0.8 mg/dL (0.6-1.0) Estimated GFR (Cockcroft-Gault) 84.2 BUN/Creatinine Ratio 10 (6-20) Glucose Level 125 mg/dL (70-99) Calcium Level 9.7 mg/dL (8.5-10.1) Total Bilirubin 0.4 mg/dL (0.2-1.0) Aspartate Amino Transf (AST/SGOT) 27 U/L (15-37) Alanine Aminotransferase (ALT/SGPT) 41 U/L (14-59) Alkaline Phosphatase 64 U/L (46-116) Troponin I High Sensitivity 10 ng/L (4-50) XI-Oav-I-Type Natriuretic Peptide 98 pg/mL (0-124) Total Protein 8.5 g/dL (6.4-8.2) Albumin 3.9 g/dL (3.4-5.0) Albumin/Globulin Ratio 0.8 (1.0-1.7) Influenza Type A Antigen Negative (NEGATIVE) Influenza Type B Antigen Negative (NEGATIVE) SARS-CoV-2 Antigen (Rapid) Negative (NEGATIVE) Erythrocyte Sedimentation Rate 17 (0-25) Laboratory Tests Test 12/21/21 20:50 Erythrocyte Sedimentation Rate 17 (0-25) Medications Active Scripts Medications Dose Route/Sig Max Daily Dose Days Date Category Dose Instructions Combivent Respimat Inhal (Ipratropium/Albuterol Sulfate) 4 Gm Aer.w.adap 1 Inh IH QID PRN 10/23/21 Rx Norvasc (Amlodipine Besylate) 5 Mg Tablet 1 Tab PO DAILY 10/23/21 Rx Prednisone (Prednisone) 10 Mg Tablet 10 Mg PO UD 10/23/21 Rx Take 5 tablets by mouth daily for 2 days, then take 4 tablets by mouth daily for 2 days, then take 3 tablets by mouth daily for 2 days, then take 2 tablets by mouth daily for 2 days, then take 1 tablets by mouth daily for 2 days, then stop. Codeine-Guaifen 10-100 mg/5 ml (Guaifenesin/Codeine Phosphate) 120 Ml Liquid 5 Ml PO PRN Q6HRS PRN 10/23/21 Rx Benzonatate 100 Mg Capsule 100 Mg PO [id number] 10/23/21 Rx Doxycycline Hyclate 100 Mg Tablet 100 Mg PO BID 10/23/21 Rx Impression . 1. Acute hypoxic respiratory failure secondary to reactive airway disease with mild exacerbation. She probably has developed reactive airway disease since her diagnosis of COVID this year. 2. Abnormal CT chest with ground glass infiltrates bilaterally. Mild progression. I suspect this is likely pneumonitis from residual COVID. Clinically, less likely any interstitial lung disease. 3. Minimal tobacco use. Plan . RECOMMENDATIONS: 1. Discussed with the patient. At this time, I will gradually wean the FiO2 down to keep saturations 92% and above. 2. Bronchodilators. Once COVID is ruled out, then nebulizer treatment. 3. Steroids. 4. Normal sedimentation rate. 5. Expect a response to her CT chest findings with steroids. 6. Likely discharge in next 24 hours. ZAIRE CONTE MD Dec 22, 2021 11:41
[2021-12-22 12:29] LABS: BACTERIA,URINE FEW /HPF (0-FEW); RBC,URINE OCC /HPF (0-2); WBC,URINE OCC /HPF (0-4)
--- NOTE | 2021-12-22 13:29 | PDOC ---
[employer] PROGRESS NOTE Date of Service DOS: DATE: 12/22/21 TIME: 13:26 Chief Complaint Chief Complaint Acute hypoxic respiratory failure secondary to reactive airway disease. Pneumonitis from residual COVID Questionable UTI Continue with IV steroids Continue IV antibiotics O2 supplementation to maintain 92% Bronchodilators and nebulizer treatments Repeat CT chest in 3 months for resolution History of Present Illness History of Present Illness 31-year-old overweight female who smokes. She presents with shortness of breath. She has some wheezing and a cough. It sounds like she probably has asthma and bronchitis. While in the ER, she also has pressures into the 195 systolically We are going to admit the patient, give her IV antibiotics, breathing treatments, oxygen, steroids and antibiotics. 12/22/2021 No acute events overnight. Patient seen examined bedside. Saturating 97% on 3 L nasal cannula. Still some dyspnea upon exertion. Bilateral wheezing on physical exam. Patient's chart, labs, images were reviewed and discussed with RN Vitals/I&O Vitals/I&O: Vital Signs Date Time Temp Pulse Resp B/P (MAP) Pulse Ox O2 Delivery O2 Flow Rate FiO2 12/22/21 11:45 Nasal Cannula 3.0 12/22/21 10:36 97 153/90 12/22/21 07:00 98.4 20 92 98.4 I & O 12/21/21 12/21/21 12/22/21 15:00 23:00 07:00 Intake Total 180 ml 1250 ml 800 ml Balance 180 ml 1250 ml 800 ml Physical Exam General: Alert Heart: Regular rate Lungs: Clear Abdomen: Normal bowel sounds Extremities: No clubbing Skin: No rashes Labs Labs: Laboratory Tests Test 12/21/21 20:50 12/22/21 11:36 Erythrocyte Sedimentation Rate 17 (0-25) Urine Collection Type Unknown Urine Color (Auto) Yellow Urine Turbidity Clear Urine pH (Auto) 5.5 (<5.0-8.0) Urine Specific [place] 1.032 (1.000-1.030) Urine Protein (Auto) Negative mg/dL (Negative) Urine Glucose (Auto)(UA) Negative mg/dL (Negative) Urine Ketones (Auto) Negative mg/dL (Negative) Urine Blood (Auto) Trace (Negative) Urine Nitrite Negative (Negative) Urine Bilirubin (Auto) Negative (Negative) Urine Urobilinogen (Auto) Normal mg/dL (Normal) Urine Leukocyte Esterase (Auto) Negative (Negative) Urine RBC Occ /HPF (0-2) Urine WBC Occ /HPF (0-4) Urine Squamous Epithelial Cells Few /LPF Urine Bacteria Few /HPF (0-FEW) Urine Mucus Mod /LPF Assessment and Plan Assessmemt and Plan Problems Medical Problems: (1) Elevated blood pressure reading Status: Acute Comment Review of Relevant I have reviewed the following items mary (where applicable) has been applied. Medications: Current Medications Medications (Trade) Dose Ordered Sig/Carmenza Route PRN Reason Start Time Stop Time Status Last Admin Dose Admin Clonidine HCl (Catapres) 0.1 mg TID PO 12/21/21 14:00 12/22/21 10:36 Azithromycin (Zithromax) 250 mg DAILY PO 12/22/21 09:00 12/25/21 09:01 12/22/21 10:35 Prednisone (Prednisone) 40 mg DAILY PO 12/22/21 09:00 12/22/21 10:35 Justifications for Admission Other Justification DANIELA PATEL MD Dec 22, 2021 13:29
[2021-12-22 15:00] VITALS: BP 149/91
[2021-12-22] MEDS: ALBUTEROL SULFATE 8GM INHALER. INH PRN ×2 (15:27→22:15)
[2021-12-22 19:00] VITALS: BP 143/78
[2021-12-22] MEDS: LACTOBACILLUS RHAMNOSUS GG 1 CAPSULE. PO SCH (21:46)
[2021-12-22 23:00] VITALS: BP_SYST 125; BP_SYST 143; BP_DIAS 78; BP_DIAS 86
[2021-12-23 03:00] VITALS: BP 136/77
[2021-12-23 07:00] VITALS: BP 158/86
[2021-12-23] MEDS: IPRATRPIUM/ALBUTEROL 0.5/2.5MG 3 ML NEBU. NEB SCH ×4 (08:00→20:13)
[2021-12-23] MEDS: BUDESONIDE 0.5 MG/2 ML NEBU. NEB SCH ×2 (08:00→20:13)
[2021-12-23] MEDS: cloNIDine HCL 0.1 MG TABLET PO SCH ×3 (08:48→20:51)
[2021-12-23] MEDS: HYDROcodone/APAP 5/325MG 1 TAB TABLET PO PRN (08:49)
[2021-12-23] MEDS: LACTOBACILLUS RHAMNOSUS GG 1 CAPSULE. PO SCH ×2 (08:49→20:51)
[2021-12-23] MEDS: AZITHROMYCIN 250 MG TABLET. PO SCH (08:49)
[2021-12-23] MEDS: predniSONE 20 MG TABLET PO SCH (08:49)
[2021-12-23] MEDS: ALBUTEROL SULFATE 8GM INHALER. INH PRN (09:13)
--- NOTE | 2021-12-23 10:00 | PDOC ---
[employer] PROGRESS NOTE Date of Service DOS: DATE: 12/23/21 TIME: 09:59 Chief Complaint Chief Complaint Acute hypoxic respiratory failure secondary to reactive airway disease. Pneumonitis from residual COVID Questionable UTI Continue with IV steroids Continue IV antibiotics O2 supplementation to maintain 92% Bronchodilators and nebulizer treatments Repeat CT chest in 3 months for resolution History of Present Illness History of Present Illness 31-year-old overweight female who smokes. She presents with shortness of breath. She has some wheezing and a cough. It sounds like she probably has asthma and bronchitis. While in the ER, she also has pressures into the 195 systolically We are going to admit the patient, give her IV antibiotics, breathing treatments, oxygen, steroids and antibiotics. 12/22/2021 No acute events overnight. Patient seen examined bedside. Saturating 97% on 3 L nasal cannula. Still some dyspnea upon exertion. Bilateral wheezing on physical exam. Patient's chart, labs, images were reviewed and discussed with RN 12/23: Patient seen and evaluated. Still on 1.5 L O2 with some faint expiratory wheezes. We will continue with breathing treatments. Placed order for 6-minute walk to set up with home oxygen. With continued breathing treatments we may be able to discharge her tomorrow. Discussed with patient that she would benefit from having home oxygen. Vitals/I&O Vitals/I&O: Vital Signs Date Time Temp Pulse Resp B/P (MAP) Pulse Ox O2 Delivery O2 Flow Rate FiO2 12/23/21 08:53 81 158/86 12/23/21 08:49 Nasal Cannula 2.5 12/23/21 07:00 98.1 18 97 98.1 I & O 12/22/21 12/22/21 12/23/21 15:00 23:00 07:00 Intake Total 480 ml 240 ml Balance 480 ml 240 ml Physical Exam General: Alert, Cooperative Heart: Regular rate Lungs: Wheezing Abdomen: Normal bowel sounds Extremities: No clubbing Skin: No rashes Labs Labs: Laboratory Tests Test 12/22/21 11:36 12/22/21 13:03 Urine Collection Type Unknown Urine Color (Auto) Yellow Urine Turbidity Clear Urine pH (Auto) 5.5 (<5.0-8.0) Urine Specific [place] 1.032 (1.000-1.030) Urine Protein (Auto) Negative mg/dL (Negative) Urine Glucose (Auto)(UA) Negative mg/dL (Negative) Urine Ketones (Auto) Negative mg/dL (Negative) Urine Blood (Auto) Trace (Negative) Urine Nitrite Negative (Negative) Urine Bilirubin (Auto) Negative (Negative) Urine Urobilinogen (Auto) Normal mg/dL (Normal) Urine Leukocyte Esterase (Auto) Negative (Negative) Urine RBC Occ /HPF (0-2) Urine WBC Occ /HPF (0-4) Urine Squamous Epithelial Cells Few /LPF Urine Bacteria Few /HPF (0-FEW) Urine Mucus Mod /LPF Coronavirus (COVID-19)(PCR) Not detected (NOT DETECTD) Assessment and Plan Assessmemt and Plan Problems Medical Problems: (1) Elevated blood pressure reading Status: Acute Comment Review of Relevant I have reviewed the following items mary (where applicable) has been applied. Medications: Current Medications Medications (Trade) Dose Ordered Sig/Carmenza Route PRN Reason Start Time Stop Time Status Last Admin Dose Admin Lactobacillus Rhamnosus (Culturelle) 1 cap BID PO 12/22/21 21:00 12/23/21 08:49 Guaifenesin (Mucinex) 600 mg BID PO 12/23/21 09:00 12/23/21 09:13 Justifications for Admission Other Justification RHONA LANDRY MD Dec 23, 2021 10:00
--- NOTE | 2021-12-23 10:08 | PDOC ---
PULMONARY PROGRESS NOTES DATE: 12/23/21 TIME: 10:06 Subjective Patient is starting to feel a little better. She is nervous about going home. Vitals Vital Signs Date Time Temp Pulse Resp B/P (MAP) Pulse Ox O2 Delivery O2 Flow Rate FiO2 12/23/21 08:53 81 158/86 12/23/21 08:49 Nasal Cannula 2.5 12/23/21 07:00 98.1 18 97 98.1 General: Alert, No acute distress Lungs: Wheezing (Much improved.) Cardiovascular: S1, S2 Abdomen: Soft Extremities: No Edema Labs Laboratory Tests Test 12/21/21 20:50 12/22/21 11:36 12/22/21 13:03 Erythrocyte Sedimentation Rate 17 (0-25) Urine Collection Type Unknown Urine Color (Auto) Yellow Urine Turbidity Clear Urine pH (Auto) 5.5 (<5.0-8.0) Urine Specific [place] 1.032 (1.000-1.030) Urine Protein (Auto) Negative mg/dL (Negative) Urine Glucose (Auto)(UA) Negative mg/dL (Negative) Urine Ketones (Auto) Negative mg/dL (Negative) Urine Blood (Auto) Trace (Negative) Urine Nitrite Negative (Negative) Urine Bilirubin (Auto) Negative (Negative) Urine Urobilinogen (Auto) Normal mg/dL (Normal) Urine Leukocyte Esterase (Auto) Negative (Negative) Urine RBC Occ /HPF (0-2) Urine WBC Occ /HPF (0-4) Urine Squamous Epithelial Cells Few /LPF Urine Bacteria Few /HPF (0-FEW) Urine Mucus Mod /LPF Coronavirus (COVID-19)(PCR) Not detected (NOT DETECTD) Laboratory Tests Test 12/22/21 11:36 12/22/21 13:03 Urine Collection Type Unknown Urine Color (Auto) Yellow Urine Turbidity Clear Urine pH (Auto) 5.5 (<5.0-8.0) Urine Specific [place] 1.032 (1.000-1.030) Urine Protein (Auto) Negative mg/dL (Negative) Urine Glucose (Auto)(UA) Negative mg/dL (Negative) Urine Ketones (Auto) Negative mg/dL (Negative) Urine Blood (Auto) Trace (Negative) Urine Nitrite Negative (Negative) Urine Bilirubin (Auto) Negative (Negative) Urine Urobilinogen (Auto) Normal mg/dL (Normal) Urine Leukocyte Esterase (Auto) Negative (Negative) Urine RBC Occ /HPF (0-2) Urine WBC Occ /HPF (0-4) Urine Squamous Epithelial Cells Few /LPF Urine Bacteria Few /HPF (0-FEW) Urine Mucus Mod /LPF Coronavirus (COVID-19)(PCR) Not detected (NOT DETECTD) Medications Active Scripts Medications Dose Route/Sig Max Daily Dose Days Date Category Dose Instructions Combivent Respimat Inhal (Ipratropium/Albuterol Sulfate) 4 Gm Aer.w.adap 1 Inh IH QID PRN 10/23/21 Rx Norvasc (Amlodipine Besylate) 5 Mg Tablet 1 Tab PO DAILY 10/23/21 Rx Prednisone (Prednisone) 10 Mg Tablet 10 Mg PO UD 10/23/21 Rx Take 5 tablets by mouth daily for 2 days, then take 4 tablets by mouth daily for 2 days, then take 3 tablets by mouth daily for 2 days, then take 2 tablets by mouth daily for 2 days, then take 1 tablets by mouth daily for 2 days, then stop. Codeine-Guaifen 10-100 mg/5 ml (Guaifenesin/Codeine Phosphate) 120 Ml Liquid 5 Ml PO PRN Q6HRS PRN 10/23/21 Rx Benzonatate 100 Mg Capsule 100 Mg PO [id number] 10/23/21 Rx Doxycycline Hyclate 100 Mg Tablet 100 Mg PO BID 10/23/21 Rx Impression . 1. Acute hypoxic respiratory failure secondary to reactive airway disease with mild exacerbation. She probably has developed reactive airway disease since her diagnosis of COVID this year. 2. Abnormal CT chest with ground glass infiltrates bilaterally. Mild progression. I suspect this is likely pneumonitis from residual COVID. Clinically, less likely any interstitial lung disease. 3. Minimal tobacco use. Plan . RECOMMENDATIONS: 1. Discussed with the patient that she is clinically doing better. She is nervous about going home. I did explain to her that keeping her on a maintenance inhaler such as Breo Ellipta and a prednisone taper should control her symptoms better. She would also benefit from a 6-minute walk test to assess the need for home oxygen. 2. Bronchodilators as discussed above. 3. Steroids. Oral prednisone taper. 4. Normal sedimentation rate. 5. Expect a response to her CT chest findings with steroids. 6. Okay with discharge today. ZAIRE CONTE MD Dec 23, 2021 10:08
[2021-12-23 10:55] VITALS: BP 149/79
--- NOTE | 2021-12-23 14:19 | NUR ---
SS following for discharge planning. SS reviewed pt chart and discussed with pt RN. Pt is from home and is currently on room air. COVID19 negative. Six minute walk completed and no home oxygen needed. Discharge plan is currently to home when medically ready for discharge. SS will continue to follow for discharge planning.
[2021-12-23 15:00] VITALS: BP 142/85
[2021-12-23 19:00] VITALS: BP 142/72
[2021-12-23 23:00] VITALS: BP 146/79
[2021-12-24 03:00] VITALS: BP 138/77
[2021-12-24 07:00] VITALS: BP 162/95
[2021-12-24] MEDS: BUDESONIDE 0.5 MG/2 ML NEBU. NEB SCH (07:46)
[2021-12-24] MEDS: IPRATRPIUM/ALBUTEROL 0.5/2.5MG 3 ML NEBU. NEB SCH ×2 (07:46→12:02)
[2021-12-24] MEDS ORDERED: ALBU8HFA INH (08:14)
[2021-12-24] MEDS ORDERED: AZIT250T6 PO (08:14)
[2021-12-24] MEDS ORDERED: PRED20TA PO (08:14)
[2021-12-24] MEDS: AZITHROMYCIN 250 MG TABLET. PO SCH (08:15)
[2021-12-24] MEDS: LACTOBACILLUS RHAMNOSUS GG 1 CAPSULE. PO SCH (08:15)
[2021-12-24] MEDS: cloNIDine HCL 0.1 MG TABLET PO SCH ×2 (08:16→14:00)
[2021-12-24] MEDS: predniSONE 20 MG TABLET PO SCH (08:16)
--- NOTE | 2021-12-24 08:23 | DISCH ---
DISCHARGE INSTRUCTIONS Condition on Discharge Condition on Discharge: Stable Activity After Discharge Activity Instructions for Disc: Activity as tolerated Exercise Instruction after Dis: Walk 30 min, 5 x per week Driving Instructions after Dis: Do not drive today Weight Bearing Status after Di: As tolerated Diet after Discharge Diet after Discharge: Regular Follow-Up Follow up with: PCP within 2 weeks of discharge Follow Up With: Pulmonology as needed or scheduled DANIELA PATEL MD Dec 24, 2021 08:23
[2021-12-24 11:00] VITALS: BP 147/79
--- NOTE | 2021-12-24 11:09 | PDOC ---
PULMONARY PROGRESS NOTES DATE: 12/24/21 TIME: 11:08 Subjective Patient has been off oxygen. Clinically doing better. Vitals Vital Signs Date Time Temp Pulse Resp B/P (MAP) Pulse Ox O2 Delivery O2 Flow Rate FiO2 12/24/21 08:16 93 162/95 12/24/21 08:00 Room Air 12/24/21 07:46 95 12/24/21 07:00 98.2 18 98.2 12/23/21 10:55 2.0 General: Alert, No acute distress Lungs: Wheezing (Much improved.) Cardiovascular: S1, S2 Abdomen: Soft Extremities: No Edema Labs Laboratory Tests Test 12/22/21 11:36 12/22/21 13:03 Urine Collection Type Unknown Urine Color (Auto) Yellow Urine Turbidity Clear Urine pH (Auto) 5.5 (<5.0-8.0) Urine Specific [place] 1.032 (1.000-1.030) Urine Protein (Auto) Negative mg/dL (Negative) Urine Glucose (Auto)(UA) Negative mg/dL (Negative) Urine Ketones (Auto) Negative mg/dL (Negative) Urine Blood (Auto) Trace (Negative) Urine Nitrite Negative (Negative) Urine Bilirubin (Auto) Negative (Negative) Urine Urobilinogen (Auto) Normal mg/dL (Normal) Urine Leukocyte Esterase (Auto) Negative (Negative) Urine RBC Occ /HPF (0-2) Urine WBC Occ /HPF (0-4) Urine Squamous Epithelial Cells Few /LPF Urine Bacteria Few /HPF (0-FEW) Urine Mucus Mod /LPF Coronavirus (COVID-19)(PCR) Not detected (NOT DETECTD) Medications Active Scripts Medications Dose Route/Sig Max Daily Dose Days Date Category Dose Instructions Combivent Respimat Inhal (Ipratropium/Albuterol Sulfate) 4 Gm Aer.w.adap 1 Inh IH QID PRN 10/23/21 Rx Norvasc (Amlodipine Besylate) 5 Mg Tablet 1 Tab PO DAILY 10/23/21 Rx Prednisone (Prednisone) 10 Mg Tablet 10 Mg PO UD 10/23/21 Rx Take 5 tablets by mouth daily for 2 days, then take 4 tablets by mouth daily for 2 days, then take 3 tablets by mouth daily for 2 days, then take 2 tablets by mouth daily for 2 days, then take 1 tablets by mouth daily for 2 days, then stop. Codeine-Guaifen 10-100 mg/5 ml (Guaifenesin/Codeine Phosphate) 120 Ml Liquid 5 Ml PO PRN Q6HRS PRN 10/23/21 Rx Benzonatate 100 Mg Capsule 100 Mg PO [id number] 10/23/21 Rx Doxycycline Hyclate 100 Mg Tablet 100 Mg PO BID 10/23/21 Rx Impression . 1. Acute hypoxic respiratory failure secondary to reactive airway disease with mild exacerbation. She probably has developed reactive airway disease since her diagnosis of COVID this year. COVID has also been reported to cause a small airway dysfunction long-term and may be another etiology of her dyspnea. 2. Abnormal CT chest with ground glass infiltrates bilaterally. Mild progression. I suspect this is likely pneumonitis from residual COVID. Clinically, less likely any interstitial lung disease. 3. Minimal tobacco use. Plan . RECOMMENDATIONS: 1. Discussed with the patient that she is clinically doing better. Feels better to go home today. She has been off the oxygen. I did explain to her that keeping her on a maintenance inhaler such as Breo Ellipta and a prednisone taper should control her symptoms better. 2. Bronchodilators as discussed above. 3. Steroids. Oral prednisone taper. 4. Normal sedimentation rate. 5. Expect a response to her CT chest findings with steroids. 6. Okay with discharge today. ZAIRE CONTE MD Dec 24, 2021 11:09
--- NOTE | 2021-12-26 13:01 | PDOC3 ---
[facility]-Discharge Summary Date of Admission: Date of Admission: Dec 22, 2011 Date of Discharge: Date of Discharge: Dec 24, 2021 Discharge Diagnosis: Discharge Diagnosis: Acute hypoxic respiratory failure secondary to reactive airway disease. Pneumonitis from residual COVID Questionable UTI Hospital Course: Hospital Course: 31-year-old overweight female who smokes. She presents with shortness of breath. She has some wheezing and a cough. It sounds like she probably has asthma and bronchitis. While in the ER, she also has pressures into the 195 systolically We are going to admit the patient, give her IV antibiotics, breathing treatments, oxygen, steroids and antibiotics. 12/22/2021 No acute events overnight. Patient seen examined bedside. Saturating 97% on 3 L nasal cannula. Still some dyspnea upon exertion. Bilateral wheezing on physical exam. Patient's chart, labs, images were reviewed and discussed with RN 12/23: Patient seen and evaluated. Still on 1.5 L O2 with some faint expiratory wheezes. We will continue with breathing treatments. Placed order for 6-minute walk to set up with home oxygen. With continued breathing treatments we may be able to discharge her tomorrow. Discussed with patient that she would benefit from having home oxygen. By day of discharge patient was clinically stable and ready to go home. She had a 6-minute walk test which showed that she did not require any O2 requirements. She will be sent home with a prednisone taper and Breo Ellipta treatments per pulmonary. Albuterol as needed. Rest of hospital course was uneventful Disposition: Disposition/Orders: D/C to Home Activity: Activity: Resume previous activity Diet: Diet: Regular Medications: Home Meds Active Scripts Albuterol Sulfate (Ventolin Hfa) 8 Gm Hfa.aer.ad, 2 PUFF INH PRN Q4HRS PRN for SHORTNESS OF BREATH for 30 Days, #1 INHALER 2 Refills Prov:DANIELA PATEL MD 12/24/21 Prednisone (PREDNISONE) 20 Mg Tablet, 20 MG PO DAILY for asthma flare for 5 Days, #5 TAB Prov:DANIELA PATEL MD 12/24/21 Azithromycin (AZITHROMYCIN TABLET) 250 Mg Tablet, 250 MG PO DAILY for asthma fla re for 5 Days, #5 TAB Prov:DANIELA PATEL MD 12/24/21 Ipratropium/Albuterol Sulfate (COMBIVENT RESPIMAT INHAL) 4 Gm Aer.w.adap, 1 INH IH QID PRN for SHORTNESS OF BREATH, #1 EACH Prov:JENNIFER ESTEBAN MD 10/23/21 Amlodipine Besylate (NORVASC) 5 Mg Tablet, 1 TAB PO DAILY for hypertension, #30 TAB 1 Refill Prov:JENNIFER ESTEBAN MD 10/23/21 Guaifenesin/Codeine Phosphate (Codeine-Guaifen 10-100 mg/5 ml) 120 Ml Liquid, 5 ML PO PRN Q6HRS PRN for COUGH, #80 ML Prov:JENNIFER ESTEBAN MD 10/23/21 Benzonatate (BENZONATATE) 100 Mg Capsule, 100 MG PO [id number] for cough, #21 CAP Prov:JENNIFER ESTEBAN MD 10/23/21 Discontinued Scripts Prednisone (PREDNISONE ) 10 Mg Tablet, 10 MG PO UD for bronchitis, #30 TAB 0 Refills Take 5 tablets by mouth daily for 2 days, then take 4 tablets by mouth daily for 2 days, then take 3 tablets by mouth daily for 2 days, then take 2 tablets by mouth daily for 2 days, then take 1 tablets by mouth daily for 2 days, then stop. Prov:JENNIFER ESTEBAN MD 10/23/21 Doxycycline Hyclate (DOXYCYCLINE HYCLATE) 100 Mg Tablet, 100 MG PO BID for pneumonia, #14 TAB Prov:JENNIFER ESTEBAN MD 10/23/21 Scheduled Amlodipine Besylate (Norvasc), 1 TAB PO DAILY Azithromycin (Azithromycin Tablet), 250 MG PO DAILY Benzonatate (Benzonatate), 100 MG PO [id number] Prednisone (Prednisone), 20 MG PO DAILY Scheduled PRN Albuterol Sulfate (Ventolin Hfa), 2 PUFF INH PRN Q4HRS PRN for SHORTNESS OF BREATH Guaifenesin/Codeine Phosphate (Codeine-Guaifen 10-100 mg/5 ml), 5 ML PO PRN Q6HRS PRN for COUGH Ipratropium/Albuterol Sulfate (Combivent Respimat Inhal), 1 INH IH QID PRN for SHORTNESS OF BREATH Discontinued Medications Doxycycline Hyclate (Doxycycline Hyclate), 100 MG PO BID Prednisone (Prednisone ), 10 MG PO UD Total Time: Total Time: Total time spent was 32 minutes in preparing scripts, discharge planning with SWI and RN and preparing this discharge summary Patient seen and examined on day of discharge. No acute abnormal findings. Justicifation of Admission Dx: Justifications for Admission: Justification of Admission Dx: Yes DANIELA PATEL MD December 26, 2021 13:01
== END 2021-12-24 15:20 | disposition home or self-care (01) | DRG 871 ==
LOC: ER 07:43 → OBSVTOIN 10:30 → 5 NORTH 10:30
PROVIDERS: ADMIT Internal Medicine; ATTEND Internal Medicine
DX: A41.9 Sepsis, unspecified organism (principal); J96.01 Acute respiratory failure with hypoxia; J18.9 Pneumonia, unspecified organism; Z68.42 Body mass index [BMI] 45.0-49.9, adult; N39.0 Urinary tract infection, site not specified; I16.0 Hypertensive urgency; E66.01 Morbid (severe) obesity due to excess calories; F17.200 Nicotine dependence, unspecified, uncomplicated; J45.909 Unspecified asthma, uncomplicated; Z83.3 Family history of diabetes mellitus; Z86.16 Personal history of COVID-19; Z87.01 Personal history of pneumonia (recurrent); Z88.0 Allergy status to penicillin; Z20.822 Contact with and (suspected) exposure to COVID-19
CPT/HCPCS: 36415; 71045; 71275; 80053; 81001; 83880; 84484; 84702; 85025; 85651; 87428; 93005; 94618; 94640; 96374; J2405; J2930; J7030; J7512; Q9967; U0003; 99285-25; G0378; J7626